=== PATIENT | female | born 1950 | race African-American/Black ===

== ENCOUNTER 2024-11-24 08:32 | Emergency (ER) | payer OTHER ==
--- OUTSIDE RECORDS SUMMARY | 2024-11-24 08:39 | XMS REPORT | Continuity of Care Document ---
Author Name Unknown Address [address] [facility] [place] [address] [facility] Address [address] [facility] [facility] [place] [address] Care Team Providers Care Sound Mixer Name Role Phone NEPTALI HERNANDEZ Primary Care Physician Unavailab BRADLEY Fox Attending Clinician Unavailable NEPTALI HERNANDEZ Attending Clinician Unavailable PAULA MAHONEY Attending Clinician Unavailab DANNY Canales Attending Clinician Unavailable DANNY NATION Attending Clinician Unavailable ANIBAL Attending Clinician Unavailable ROLY ONEILL Attending Clinician Unavailable NAN MATHEWS Attending Clinician Unavailabl e IMELDA SHETTYR Attending Clinician Unavailable Darren Attending Clinician Unavailable KANDACE MAHONEY Attending Clinician Unavailab BAILEY Alfonso Attending Clinician Unavail able BAILEY GRIMALDO Attending Clinician Unavailab ALEXANDRU Figueroa Attending Clinician Unavailable ALEXANDRU BOJORQUEZ Attending Clinician Unavailable UNASSIGNED, ED Attending Clinician Unavailable PAULA MAHONEY Admitting Clinician Unavailab DANNY Canales Admitting Clinician Unavailable ANIBAL Admitting Clinician Unavailable ROLY ONEILL Admitting Clinician Unavailable EVELIO SHETTY Admitting Clinician Unavailable Darren Admitting Clinician Unavailable KANDACE MAHONEY Admitting Clinician Unavailab BAILEY Alfonso Admitting Clinician Unavailab ALEXANDRU Figueroa Admitting Clinician Unavailable Payers Payer Name Policy Type Policy Number Effective Date Expirati on Date Source 2 M [id number] [facility] (MEDICARE REPLACEMENT O) [id number] [id number] 00:00:00 2 M [id number] 2 [id number] Problems Condition Name Condition Details Condition Category Status Onset Date Resolution Date Last Treatment Date Treating Clinician Comments Source Pain of upper extremity Problem Inactiv e TEL Coronary artery disease Problem Active TEL Congestive heart failure Problem Active TEL Acute on chronic congestive heart failure Problem Inactiv e TEL Chronic kidney disease Problem Active TEL Acute kidney injury Problem Inactiv e TEL Chronic obstructiv e pulmonary disease Problem Active TEL Cholelithi asis Problem Active TEL Dehydratio n Problem Active TEL Hypokalemi a Problem Active TEL Nausea and vomiting Problem Inactiv e TEL Pancreatit is Problem Inactiv e TEL Acute renal failure superimpos ed on chronic kidney disease Problem Active TEL 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 Inactiv e TEL Diabetes mellitus Problem Active TEL Fall Problem Inactiv e TEL Gastroesop hageal reflux disease Problem Active TEL Hyperlipid emia Problem Active TEL Hypertensi on Problem Active TEL History of cerebrovas cular accident Problem Active TEL History of pulmonary embolism Problem Active TEL Left upper quadrant abdominal pain Problem Inactiv e TEL Pain of lower extremity Problem Inactiv e TEL Morbid obesity Problem Active TEL Pulmonary embolism Problem Active TEL Pulmonary infarction Problem Active TEL Rib pain on right side Problem Inactiv e TEL Right upper quadrant abdominal pain Problem Inactiv e TEL Hemoptysis Problem Inactiv e TEL Chest pain Problem [facility] ([facility]) Allergies, Adverse Reactions, Alerts Allergy Name Allergy Type Status Severity Reaction(s) Onset Date Inactive Date Treating Clinician Comments Source L[place]R [place] Drug Allergy Active U swelling 3 01:44: 56 [facility] ([facility]) Lisinopr il Allergy to substanc e Active Unknown 2020-07 00:00: 00 TEL Shellfis h Allergy to substanc e Active Unknown 2020-07 00:00: 00 TEL Shellfis h Allergy to substanc e Active Unknown 2020-07 00:00: 00 [facility] [place] Drug Allergy Active U swelling 2020-07 0 14:41: 42 [facility] ([facility]) LISINOPR [place] Drug Allergy Active U swelling 2020-07 0 09:38: 44 [facility] ([facility]) No Known Allergie s NA Active 2020-07 0 09:26: 40 [facility] ([facility]) No Known Allergie s NA Active 2020-07 0 08:32: 02 [facility] ([facility]) No Known Allergie s NA Active 2020-07 08:28: 53 [facility] ([facility]) No Known Allergie s NA Active 2020-07 0 08:28: 32 [facility] ([facility]) No Known Allergie s NA Active 2020-07 0 13:38: 52 [facility] ([facility]) Lisinopr il Allergy to substanc e Active Unknown 814 00:00: 00 [facility] [place] Drug Allergy Active Adverse reaction to substance [facility] ([facility]) Social History Social Habit Start Date Stop Date Quantity Comments Source History of tobacco use TEL ASSERTION [facility] Future intention Reported [facility] Sex Assigned At 1950 00:00:00 1950 00:00:00 Female TEL Smoking Status Start Date Stop Date Source Unknown if ever smoked [facility] Ex-smoker (finding) 2023-11-17 20:00:00 2023-11-17 20: 00:00 TEL Never smoked tobacco (finding) TEL Medications Ordered Medication Name Filled Medication Name Start Date Stop Date Current Medication? Ordering Clinician Indication Dosage Frequency Signature (SIG) Comments Components Source Atorvastati n Calcium (Lipitor) 40 Mg TAB 11-17 03:37: 00 No 40mg Daily TEL Bumetanide (Bumex) 2 Mg TAB 11-17 03:37: 00 No 2mg Twice A Day TEL Hydralazine Hcl (Apresoline ) 25 Mg TAB 11-17 03:37: 00 No 25mg Three Times A Day TEL Insulin Aspart (Novolog 70/30) 100 Unit/1 Ml SUSP 11-17 03:37: 00 No 12 Three Times A Day TEL Metolazone (Zaroxolyn) 5 Mg TAB 11-17 03:37: 00 No 5mg Daily TEL Potassium Chloride (K-Dur) 20 Meq TABCR 02-24 18:45: 18 12-02 13:08 :00 No 20 Twice A Day TEL Chlorthalid one (Hygroton) 25 Mg TAB 02-24 18:45: 17 02-24 14:56 :00 No .5 Daily With Breakfast TEL Diltiazem Hcl (Cardizem Cd) 120 Mg CAPCR 02-24 18:45: 17 02-24 14:56 :00 No 120mg Three Times A Day TEL Furosemide (Lasix) 20 Mg TAB 02-24 18:45: 17 02-24 14:56 :00 No 20mg Daily as needed for Fluid Overload TEL Losartan Potassium (Cozaar) 100 Mg TAB 02-24 18:45: 17 02-24 14:56 :00 No 100mg Daily TEL Sacubitril/ Valsartan (Entresto 49 Mg-51 Mg Tablet) 1 Each TABLET 02-24 14:56: 00 No 1 Twice A Day TEL Nifedipine (Procardia Xl) 30 Mg TAB.ER.24 02-24 14:56: 00 11-17 03:37 :00 No 30mg Daily TEL Torsemide (Demadex) 10 Mg TAB 8-01 14:56: 00 11-17 03:37 :00 No 50mg Daily TEL Cholecalcif jason (Vitamin D (D3)) 2,000 Unit CAP 12-02 14:08: 18 12-02 13:08 :00 No 2000 Daily TEL Dulaglutide (Trulicity) 0.75 Mg/0.5 Ml PEN.INJCTR 12-02 14:08: 17 11-17 03:38 :00 No .75mg Once A Week TEL Aspirin (Ecotrin Ec) 81 Mg TABEC 12-02 14:08: 12-02 13:08 :00 No 81mg Daily TEL Potassium Chloride (K-Dur) 20 Meq TABCR 12-02 14:08: 12-02 13:08 :00 No 20 Twice A Day TEL Allopurinol (Zyloprim) 100 Mg TAB 12-02 14:08: 00 No 100mg Daily TEL Apixaban (Eliquis) 5 Mg TAB 12-02 14:08: 00 No 5mg Twice A Day TEL Epinephrine Hcl (Epipen Inj) 0.3 Mg/0.3 Ml MARY 12-02 14:08: 00 11-17 03:38 :00 No .3mg As Directed as needed for Allergies TEL Famotidine (Pepcid) 40 Mg TAB 12-02 14:08: 11-17 03:37 :00 No 40mg Daily TEL Insulin Glargine (Lantus Solostar Disp Pen) 100 Unit/1 Ml SUSP 12-02 14:08: 00 11-17 03:37 :00 No 15 Bedtime TEL Semaglutide (Ozempic) 2 Mg/0.75 Ml PEN.INJCTR 12-02 14:08: 00 11-17 03:38 :00 No .5mg Once A Week TEL Semaglutide Inj (Ozempic Inj) 0.25 Mg/0.2 Ml PEN.INJCTR 12-02 14:08: 00 11-17 03:38 :00 No .25mg Once A Week TEL Carvedilol (Coreg) 25 Mg TAB 08-02 13:43: 15 08-02 13:40 :00 No 25mg Bid With Meals TEL Clopidogrel Bisulfate (Plavix) 75 Mg TAB 08-02 13:43: 15 08-02 13:40 :00 No 75mg Daily TEL Apixaban (Eliquis) 5 Mg TAB 08-02 13:40: 00 12-02 13:08 :00 No 10mg Twice A Day TEL Apixaban (Eliquis) 5 Mg TAB 08-02 13:40: 00 12-02 13:08 :00 No 5mg Twice A Day TEL Carvedilol (Coreg) 25 Mg TAB 08-02 13:40: 00 12-02 13:08 :00 No 12.5mg Bid With Meals TEL Chlorthalid one (Hygroton) 50 Mg TABLET 08-02 13:40: 00 12-02 13:08 :00 No 25mg Daily TEL Diltiazem Hcl (Cardizem) 120 Mg TAB 08-02 13:40: 00 12-02 13:08 :00 No 60mg Three Times A Day TEL Insulin Glargine (Lantus Solostar Disp Pen) 100 Unit/1 Ml SUSP 08-02 13:40: 00 12-02 13:08 :00 No 25 Bedtime TEL Insulin Glargine (Lantus Solostar Disp Pen) 100 Unit/1 Ml SUSP 08-02 13:40: 00 12-02 13:08 :00 No 15 Once TEL Losartan Potassium (Cozaar) 50 Mg TAB 08-02 13:40: 00 12-02 13:08 :00 No 50mg Daily TEL Prednisone (Deltasone) 20 Mg TAB 08-02 13:40: 00 12-02 13:08 :00 No 40mg Daily TEL Amoxicillin (Amoxil) 500 Mg CAP 08-02 13:40: 00 09-02 00:07 :00 No 1000mg Twice A Day TEL Insulin Aspart (Novolog Flexpen) 100 Unit/1 Ml INSULN.PEN 2020-07 10:19: 00 11-17 03:38 :00 No 15 Before Meals TEL Atorvastati n Calcium (Lipitor) 80 Mg TAB 2020-07 10:18: 00 11-17 03:37 :00 No 80mg Bedtime TEL Aspirin Adult Low Strength Oral Tablet Delayed Release 81 MG Aspirin Adult Low Strength Oral Tablet Delayed Release 81 MG 2020-07 14:59: 24 Yes 1TAB medication :|dose:1.0 TAB|route: ORAL|frequ ency:DAILY [facility] Atorvastati n Calcium Oral Tablet 80 MG Atorvastati n Calcium Oral Tablet 80 MG 2020-07 14:59: 24 Yes 1TAB medication :Atorvasta tin Calcium Oral Tablet 80 MG|dose:1. 0 TAB|route: ORAL|frequ ency:DAILY [facility] ([facility]) Carvedilol Oral Tablet 25 MG Carvedilol Oral Tablet 25 MG 2020-07 14:59: 24 Yes 1TAB medication :Carvedilo l Oral Tablet 25 MG|dose:1. 0 TAB|route: ORAL|frequ ency:TWICE DAILY [facility] ([facility]) Chlorthalid one Oral Tablet 50 MG Chlorthalid one Oral Tablet 50 MG 2020-07 14:59: 24 Yes 1TAB medication :Chlorthal idone Oral Tablet 50 MG|dose:1. 0 TAB|route: ORAL|frequ ency:DAILY [facility] ([facility]) Lantus SoloStar Subcutaneou s Solution Pen-injecto r 100 UNIT/ML Lantus SoloStar Subcutaneou s Solution Pen-injecto r 100 UNIT/ML 2020-07 14:59: 24 Yes 20UN medication :Lantus SoloStar Subcutaneo us Solution Pen-inject or 100 UNIT/ML|do se:20.0 UN|route:S UBCUTANEOU S|frequenc y:DAILY [facility] Losartan Potassium Oral Tablet 50 MG Losartan Potassium Oral Tablet 50 MG 2020-07 14:59: 24 Yes 1TAB medication :Losartan Potassium Oral Tablet 50 MG|dose:1. 0 TAB|route: ORAL|frequ ency:DAILY [facility] ([facility]) NovoLIN 70/30 FlexPen Subcutaneou s Suspension Pen-injecto r (70-30) 100 UNIT/ML NovoLIN 70/30 FlexPen Subcutaneou s Suspension Pen-injecto r (70-30) 100 UNIT/ML 2020-07 14:59: 24 Yes 15UN medication :NovoLIN 70/30 FlexPen Subcutaneo us Suspension Pen-inject or (70-30) 100 UNIT/ML|do se:15.0 UN|route:S UBCUTANEOU S|frequenc y:THREE TIME DAILY [facility]) Plavix Oral Tablet 75 MG Plavix Oral Tablet 75 MG 2020-07 14:59: 24 Yes 1TAB medication :Plavix Oral Tablet 75 MG|dose:1. 0 TAB|route: ORAL|frequ ency:DAILY [facility]) Potassium Chloride Kimmie ER Oral Tablet Extended Release 20 MEQ Potassium Chloride Kimmie ER Oral Tablet Extended Release 20 MEQ 2020-07 14:59: 24 Yes 1TAB medication :Potassium Chloride Kimmie ER Oral Tablet Extended Release 20 MEQ|dose:1 .0 TAB|route: ORAL|frequ ency:DAILY [facility]) Trulicity Subcutaneou s Solution Pen-injecto r 0.75 MG/0.5ML Trulicity Subcutaneou s Solution Pen-injecto r 0.75 MG/0.5ML 2020-07 14:59: 24 Yes .75mg medication :Trulicity Subcutaneo us Solution Pen-inject or 0.75 MG/0.5ML|d ose:0.75 mg|route:S UBCUTANEOU S|frequenc y:EVERY WEEK [facility] ([facility]) Vitamin D3 Oral Capsule 50 MCG (1999) Vitamin D3 Oral Capsule 50 MCG (1999) 2020-07 14:59: 24 Yes 1CAP medication :Vitamin D3 Oral Capsule 50 MCG (1999)|dose:1 .0 CAP|route: ORAL|frequ ency:DAILY [facility] ([facility]) dilTIAZem HCl ER Oral Capsule Extended Release 12 Hour 120 MG dilTIAZem HCl ER Oral Capsule Extended Release 12 Hour 120 MG 2020-07 14:59: 24 Yes 1CAP medication :dilTIAZem HCl ER Oral Capsule Extended Release 12 Hour 120 MG|dose:1. 0 CAP|route: ORAL|frequ ency:DAILY [facility] ([facility]) PATIENT'S OWN MEDICATION MISC PATIENT'S OWN MEDICATION MISC 2020-07 14:59: 24 05-25 14:59 :24 No 1EA medication :PATIENT'S OWN MEDICATION MISC|dose: 1.0 EA|route:S UBCUTANEOU S|frequenc y:EVERY WEEK [facility] ([facility]) insulin, lispro 100 UNIT/ML SOLN insulin, lispro 100 UNIT/ML SOLN 2020-07 11:30: 00 05-25 14:59 :24 No 1UN medication :insulin, lispro 100 UNIT/ML SOLN|dose: 1.0 UN|route:S UBCUTANEOU S|frequenc y:BEFORE MEALS AND AT BEDTIME [facility] ([facility]) Chlorthalid one Oral Tablet 50 MG Chlorthalid one Oral Tablet 50 MG 2020-07 09:00: 00 05-25 09:00 :00 No 1TAB medication :Chlorthal idone Oral Tablet 50 MG|dose:1. 0 TAB|route: ORAL|frequ ency:DAILY [facility] ([facility]) Trulicity Subcutaneou s Solution Pen-injecto r 0.75 MG/0.5ML Trulicity Subcutaneou s Solution Pen-injecto r 0.75 MG/0.5ML 2020-07 09:00: 00 05-25 09:00 :00 No .75mg medication :Trulicity Subcutaneo us Solution Pen-inject or 0.75 MG/0.5ML|d ose:0.75 mg|route:S UBCUTANEOU S|frequenc y:EVERY WEEK [facility] ([facility]) potassium chloride ER 20 MEQ TAB TBCR potassium chloride ER 20 MEQ TAB TBCR 2020-07 09:00: 00 05-25 15:39 :00 No 20MEQ medication :potassium chloride ER 20 MEQ TAB TBCR|dose: 20.0 MEQ|route: ORAL|frequ ency:DAILY [facility] ([facility]) clopidogrel 75 MG TABS clopidogrel 75 MG TABS 2020-07 09:00: 00 05-25 15:39 :00 No 75mg medication :clopidogr el 75 MG TABS|dose: 75.0 mg|route:O RAL|freque ncy:DAILY [facility] ([facility]) losartan 50 MG TABS losartan 50 MG TABS 2020-07 09:00: 00 05-25 15:39 :00 No 50mg medication :losartan 50 MG TABS|dose: 50.0 mg|route:O RAL|freque ncy:DAILY [facility] ([facility]) Lantus SoloStar Subcutaneou s Solution Pen-injecto r 100 UNIT/ML Lantus SoloStar Subcutaneou s Solution Pen-injecto r 100 UNIT/ML 2020-07 09:00: 00 05-25 09:00 :00 No 20UN medication :Lantus SoloStar Subcutaneo us Solution Pen-inject or 100 UNIT/ML|do se:20.0 UN|route:S UBCUTANEOU S|frequenc y:DAILY [facility] ([facility]) aspirin 81 MG CHEW aspirin 81 MG CHEW 2020-07 09:00: 00 05-25 14:59 :24 No 81mg medication :aspirin 81 MG CHEW|dose: 81.0 mg|route:O RAL|freque ncy:DAILY [facility] ([facility]) chlorthalid one 25 MG TABS chlorthalid one 25 MG TABS 2020-07 09:00: 00 05-25 14:59 :24 No 50mg medication :chlorthal idone 25 MG TABS|dose: 50.0 mg|route:O RAL|freque ncy:DAILY [facility]) dilTIAZem CD 120 MG CP24 dilTIAZem CD 120 MG CP24 2020-07 09:00: 00 05-25 14:59 :24 No 120mg medication :dilTIAZem CD 120 MG CP24|dose: 120.0 mg|route:O RAL|freque ncy:DAILY [facility]) insulin, glargine 100 UNIT/ML SOLN insulin, glargine 100 UNIT/ML SOLN 2020-07 09:00: 00 05-25 14:59 :24 No 20UN medication :insulin, glargine 100 UNIT/ML SOLN|dose: 20.0 UN|route:S UBCUTANEOU S|frequenc y:DAILY [facility]) vitamin D 1,000 UNIT TABS vitamin D 1,000 UNIT TABS 2020-07 09:00: 00 05-25 14:59 :24 No 2000UN medication :vitamin D 1,000 UNIT TABS|dose: 2000.0 UN|route:O RAL|freque ncy:DAILY [facility]) glucose ORAL 40 % GEL glucose ORAL 40 % GEL 2020-07 07:54: 00 05-25 14:59 :24 No 1TBE medication :glucose ORAL 40 % GEL|dose:1 .0 TBE|route: ORAL|frequ ency: NEEDED [facility] ([facility]) glucose ORAL 40 % GEL glucose ORAL 40 % GEL 2020-07 07:54: 00 05-25 14:59 :24 No 2TBE medication :glucose ORAL 40 % GEL|dose:2 .0 TBE|route: ORAL|frequ ency: NEEDED [facility]) glucagon INJ 1 MG SOLR glucagon INJ 1 MG SOLR 2020-07 07:54: 00 05-25 14:59 :24 No 1mg medication :glucagon INJ 1 MG SOLR|dose: 1.0 mg|route:I NTRAMUSCUL AR|frequen cy: [facility]ED [facility] D50W INJ SYRINGE SOLN D50W INJ SYRINGE SOLN 2020-07 07:54: 00 05-25 14:59 :24 No 50mL medication :D50W INJ SYRINGE SOLN|dose: 50.0 mL|route:I NTRAVENOUS |frequency : NEEDED [facility] ([facility]) D50W INJ SYRINGE SOLN D50W INJ SYRINGE SOLN 2020-07 07:54: 00 05-25 14:59 :24 No 25mL medication :D50W INJ SYRINGE SOLN|dose: 25.0 mL|route:I NTRAVENOUS |frequency : NEEDED [facility] ([facility] D5W SOLN D5W SOLN 2020-07 07:54: 00 05-25 14:59 :24 No 1000mL medication :D5W SOLN|dose: 1000.0 mL|route:I NTRAVENOUS |frequency : NEEDED [facility] NS SOLN NS SOLN 2020-07 22:00: 00 05-25 14:59 :24 No 1000mL medication :NS SOLN|dose: 1000.0 mL|route:I NTRAVENOUS |frequency :CONT [facility] ([facility] MISSING DOSE REQUEST MISC MISSING DOSE REQUEST MISC 2020-07 21:16: 00 05-24 21:19 :49 No 1EA medication :MISSING DOSE REQUEST MISC|dose: 1.0 EA|route:N OT APPLICABLE |frequency :ONE TIME [facility] ([facility]) carvedilol 25 MG TABS carvedilol 25 MG TABS 2020-07 21:00: 00 05-25 15:39 :00 No 25mg medication :carvedilo l 25 MG TABS|dose: 25.0 mg|route:O RAL|freque ncy:TWICE DAILY [facility] ([facility]) atorvaSTATi n 80 MG TABS atorvaSTATi n 80 MG TABS 2020-07 21:00: 00 05-25 14:59 :24 No 80mg medication :atorvaSTA Tin 80 MG TABS|dose: 80.0 mg|route:O RAL|freque ncy:AT BEDTIME [facility] insulin, isophane-re gular 70-30 % SUSP insulin, isophane-re gular 70-30 % SUSP 2020-07 21:00: 00 05-25 14:59 :24 No 15UN medication :insulin, isophane-r egular 70-30 % SUSP|dose: 15.0 UN|route:S UBCUTANEOU S|frequenc y:THREE TIME DAILY [facility] ([facility]) NovoLIN 70/30 FlexPen Subcutaneou s Suspension Pen-injecto r (70-30) 100 UNIT/ML NovoLIN 70/30 FlexPen Subcutaneou s Suspension Pen-injecto r (70-30) 100 UNIT/ML 2020-07 21:00: 00 05-24 21:00 :00 No 15UN medication :NovoLIN 70/30 FlexPen Subcutaneo us Suspension Pen-inject or (70-30) 100 UNIT/ML|do se:15.0 UN|route:S UBCUTANEOU S|frequenc y:THREE TIME DAILY [facility] ([facility]) CLARIFICATI ON: MED QUESTION MIS CLARIFICATI ON: MED QUESTION MISC 2020-07 17:00: 00 05-24 17:00 :00 No 1EA medication :CLARIFICA TION: MED QUESTION MISC|dose: 1.0 EA|route:N OT APPLICABLE |frequency :EVERY 4 HOURS [facility] ([facility]) NS SOLN NS SOLN 2020-07 16:03: 00 05-24 22:02 :00 No 1000mL medication :NS SOLN|dose: 1000.0 mL|route:I NTRAVENOUS |frequency :CONT [facility] ([facility]) CLARIFICATI ON: MED QUESTION MISC CLARIFICATI ON: MED QUESTION MISC 2020-07 14:42: 00 05-24 15:45 :04 No 1EA medication :CLARIFICA TION: MED QUESTION MISC|dose: 1.0 EA|route:N OT APPLICABLE |frequency :EVERY 4 HOURS [facility] aspirin 325 MG TABS aspirin 325 MG TABS 2020-07 13:41: 00 05-24 13:41 :00 No 325mg medication :aspirin 325 MG TABS|dose: 325.0 mg|route:O RAL|freque ncy:ONE TIME [facility] ([facility]) clopidogrel 75 MG TABS clopidogrel 75 MG TABS 2020-07 13:41: 00 05-24 13:41 :00 No 75mg medication :clopidogr el 75 MG TABS|dose: 75.0 mg|route:O RAL|freque ncy:[facility] iopamidol-3 00 INJ 61 % SOLN iopamidol-3 00 INJ 61 % SOLN 2020-07 12:21: 00 05-24 12:21 :00 No 100mL medication :iopamidol -300 INJ 61 % SOLN|dose: 100.0 mL|route:I NTRAVENOUS |frequency :ONE TIME [facility] ([facility]) heparin INJ 1,000 UNIT/ML SOLN heparin INJ 1,000 UNIT/ML SOLN 2020-07 11:51: 00 05-24 11:51 :00 No 1000UN medication :heparin INJ 1,000 UNIT/ML SOLN|dose: 1000.0 UN|route:| frequency: ONE TIME [facility] ([facility]) heparin-NS 1000 UNIT/500 ML SOLN heparin-NS 1000 UNIT/500 ML SOLN 2020-07 11:34: 00 05-24 11:34 :00 No 1000UN medication :heparin-N S 1000 UNIT/500 ML SOLN|dose: 1000.0 UN|route:I NTRAVENOUS |frequency :ONE TIME [facility] ([facility]) iopamidol-3 00 INJ 61 % SOLN iopamidol-3 00 INJ 61 % SOLN 2020-07 11:34: 00 05-24 11:34 :00 No 100mL medication :iopamidol -300 INJ 61 % SOLN|dose: 100.0 mL|route:I NTRAVENOUS |frequency :ONE TIME [facility] ([facility]) verapamil INJ 5 MG/2 ML SOLN verapamil INJ 5 MG/2 ML SOLN 2020-07 11:28: 00 05-24 11:28 :00 No 5mg medication :verapamil INJ 5 MG/2 ML SOLN|dose: 5.0 mg|route:I NTRAVENOUS |frequency :ONE TIME [facility] ([facility]) fentaNYL INJ 100 MCG/2 ML SOLN fentaNYL INJ 100 MCG/2 ML SOLN 2020-07 11:28: 00 05-24 11:28 :00 No 100ug medication :fentaNYL INJ 100 MCG/2 ML SOLN|dose: 100.0 ug|route:I NTRAVENOUS |frequency :ONE TIME [facility] ([facility]) heparin INJ 1,000 UNIT/ML SOLN heparin INJ 1,000 UNIT/ML SOLN 2020-07 11:28: 00 05-24 11:28 :00 No 1000UN medication :heparin INJ 1,000 UNIT/ML SOLN|dose: 1000.0 UN|route:| frequency: ONE TIME [facility] ([facility]) 1/2 NS SOLN 1/2 NS SOLN 2020-07 11:28: 00 05-24 11:28 :00 No 500mL medication :1/2 NS SOLN|dose: 500.0 mL|route:I NTRAVENOUS |frequency :ONE TIME [facility] ([facility]) midazolam INJ 5 MG/1 ML SOLN midazolam INJ 5 MG/1 ML SOLN 2020-07 11:28: 00 05-24 11:28 :00 No 1mg medication :midazolam INJ 5 MG/1 ML SOLN|dose: 1.0 mg|route:I NTRAVENOUS |frequency :ONE TIME [facility] ([facility]) phenylephri ne INJ 10 MG/1 ML SOLN phenylephri ne INJ 10 MG/1 ML SOLN 2020-07 11:28: 00 05-24 11:28 :00 No 10mg medication :phenyleph rine INJ 10 MG/1 ML SOLN|dose: 10.0 mg|route:I NTRAVENOUS |frequency :ONE TIME [facility] ([facility]) atropine INJ syringe 1 MG/10 ML SOSY atropine INJ syringe 1 MG/10 ML SOSY 2020-07 11:28: 00 05-24 11:28 :00 No .01mg medication :atropine INJ syringe 1 MG/10 ML SOSY|dose: 0.01 mg|route:I NTRAVENOUS |frequency :ONE TIME [facility] ([facility]) NS SOLN NS SOLN 2020-07 11:28: 00 05-24 11:28 :00 No 100mL medication :NS SOLN|dose: 100.0 mL|route:I NTRAVENOUS |frequency :ONE TIME [facility] ([facility]) nitroglycer in-D5W 25mg/ 250 ML SOLN nitroglycer in-D5W 25mg/ 250 ML SOLN 2020-07 11:28: 00 05-24 11:28 :00 No 250mL medication :nitroglyc darien-D5W 25mg/ 250 ML SOLN|dose: 250.0 mL|route:I NTRAVENOUS |frequency :ONE TIME [facility] ([facility]) lidocaine INJ MULTI DOSE VIAL 2 % 20ML SOLN lidocaine INJ MULTI DOSE VIAL 2 % 20ML SOLN 2020-07 11:16: 00 05-24 11:16 :00 No 20mL medication :lidocaine INJ MULTI DOSE VIAL 2 % 20ML SOLN|dose: 20.0 mL|route:| frequency: ONE TIME [facility] ([facility]) heparin-NS 1000 UNIT/500 ML SOLN heparin-NS 1000 UNIT/500 ML SOLN 2020-07 11:16: 05-24 11:16 :00 No 1000UN medication :heparin-N S 1000 UNIT/500 ML SOLN|dose: 1000.0 UN|route:I NTRAVENOUS |frequency :ONE TIME [facility]) iopamidol-3 00 INJ 61 % SOLN iopamidol-3 00 INJ 61 % SOLN 2020-07 11:16: 00 05-24 11:16 :00 No 100mL medication :iopamidol -300 INJ 61 % SOLN|dose: 100.0 mL|route:I NTRAVENOUS |frequency :ONE TIME [facility]) iopamidol-3 00 INJ 61 % SOLN iopamidol-3 00 INJ 61 % SOLN 2020-07 11:16: 00 05-24 11:16 :00 No 50mL medication :iopamidol -300 INJ 61 % SOLN|dose: 50.0 mL|route:I NTRAVENOUS |frequency :ONE TIME [facility]) Aspirin Adult Low Strength Oral Tablet Delayed Release 81 MG Aspirin Adult Low Strength Oral Tablet Delayed Release 81 MG 2020-07 07:00: 00 Yes 1TAB medication :Aspirin Adult Low Strength Oral Tablet Delayed Release 81 MG|dose:1. 0 TAB|route: ORAL|frequ ency:DAILY [facility]) Carvedilol Oral Tablet 25 MG Carvedilol Oral Tablet 25 MG 2020-07 07:00: 00 Yes 1TAB medication :Carvedilo l Oral Tablet 25 MG|dose:1. 0 TAB|route: ORAL|frequ ency:BID [facility]) Chlorthalid one Oral Tablet 50 MG Chlorthalid one Oral Tablet 50 MG 2020-07 07:00: 00 Yes 1TAB medication :Chlorthal idone Oral Tablet 50 MG|dose:1. 0 TAB|route: ORAL|frequ ency:DAILY [facility]) dilTIAZem HCl ER Oral Capsule Extended Release 12 Hour 120 MG dilTIAZem HCl ER Oral Capsule Extended Release 12 Hour 120 MG 2020-07 07:00: 00 Yes 1CAP medication :dilTIAZem HCl ER Oral Capsule Extended Release 12 Hour 120 MG|dose:1. 0 CAP|route: ORAL|frequ ency:DAILY [facility]) Losartan Potassium Oral Tablet 50 MG Losartan Potassium Oral Tablet 50 MG 2020-07 07:00: 00 Yes 1TAB medication :Losartan Potassium Oral Tablet 50 MG|dose:1. 0 TAB|route: ORAL|frequ ency:DAILY [facility]) Plavix Oral Tablet 75 MG Plavix Oral Tablet 75 MG 2020-07 07:00: 00 Yes 1TAB medication :Plavix Oral Tablet 75 MG|dose:1. 0 TAB|route: ORAL|frequ ency:DAILY [facility]) Potassium Chloride Kimmie ER Oral Tablet Extended Release 20 MEQ Potassium Chloride Kimmie ER Oral Tablet Extended Release 20 MEQ 2020-07 07:00: 00 Yes 1TAB medication :Potassium Chloride Kimmie ER Oral Tablet Extended Release 20 MEQ|dose:1 .0 TAB|route: ORAL|frequ ency:DAILY [facility]) Vitamin D3 Oral Capsule 50 MCG (1999) Vitamin D3 Oral Capsule 50 MCG (1999) 2020-07 07:00: 00 Yes 1CAP medication :Vitamin D3 Oral Capsule 50 MCG (1999 UT)|dose:1 .0 CAP|route: ORAL|frequ ency:DAILY [facility]) NovoLIN 70/30 FlexPen Subcutaneou s Suspension Pen-injecto r (70-30) 100 UNIT/ML NovoLIN 70/30 FlexPen Subcutaneou s Suspension Pen-injecto r (70-30) 100 UNIT/ML 2020-07 09:32: 00 Yes 15UN medication :NovoLIN 70/30 FlexPen Subcutaneo us Suspension Pen-inject or (70-30) 100 UNIT/ML|do se:15.0 UN|route:S Q|frequenc y:TID [facility] ([facility]) Lantus SoloStar Subcutaneou s Solution Pen-injecto r 100 UNIT/ML Lantus SoloStar Subcutaneou s Solution Pen-injecto r 100 UNIT/ML 2020-07 09:31: 00 Yes 20UN medication :Lantus SoloStar Subcutaneo us Solution Pen-inject or 100 UNIT/ML|do se:20.0 UN|route:S Q|frequenc y:[facility] Atorvastati n Calcium Oral Tablet 80 MG Atorvastati n Calcium Oral Tablet 80 MG 2020-07 09:27: 00 Yes 1TAB medication :Atorvasta tin Calcium Oral Tablet 80 MG|dose:1. 0 TAB|route: ORAL|frequ ency:DAILY [facility]) Trulicity Subcutaneou s Solution Pen-injecto r 0.75 MG/0.5ML Trulicity Subcutaneou s Solution Pen-injecto r 0.75 MG/0.5ML 2020-07 09:34: 00 Yes .75mg medication :Trulicity Subcutaneo us Solution Pen-inject or 0.75 MG/0.5ML|d ose:0.75 mg|route:S Q|frequenc y:QWK [facility]) Al Hydrox/Mg Hydrox/Juwan thicone (Mylanta Liq) 355 Ml ORAL.SUSP 03-09 05:55: 00 No 5mL Tid Before Meals & Hs [facility] Famotidine (Pepcid) 40 Mg TAB 03-09 05:55: 00 No 40mg Daily [facility] Lidocaine (Lidoderm 5% Patch) 1 Each ADH..PATCH 03-09 05:55: 00 No 1 Daily as needed for Pain [facility] Al Hydrox/Mg Hydrox/Juwan thicone (Mylanta Liq) 355 Ml ORAL.SUSP 03-09 05:55: 00 06-03 00:00 :00 No 5mL Tid Before Meals & Hs [facility] Famotidine (Pepcid) 40 Mg TAB 03-09 05:55: 00 06-03 00:00 :00 No 40mg Daily [facility] Lidocaine (Lidoderm 5% Patch) 1 Each ADH..PATCH 2021-0 8-14 05:55: 00 06-03 00:00 :00 No 1 Daily as needed for Pain [facility] Carvedilol (Coreg) 25 Mg TAB 08-02 00:00 :00 No 25mg Bid With Meals [facility] Chlorthalid one (Hygroton) 50 Mg TABLET 08-02 00:00 :00 No 50mg Daily [facility] Clopidogrel Bisulfate (Plavix) 75 Mg TAB 08-02 00:00 :00 No 75mg Daily [facility] Diltiazem Hcl (Cardizem) 120 Mg TAB 08-02 00:00 :00 No 120mg Three Times A Day [facility] Diphenhydra mine Hcl (Benadryl) 25 Mg CAP 08-02 00:00 :00 No 50mg As Directed [facility] Insulin Glargine (Lantus Solostar Disp Pen) 100 Unit/1 Ml SUSP 08-02 00:00 :00 No 20 Bedtime [facility] Insulin Glargine (Lantus Solostar Disp Pen) 100 Unit/1 Ml SUSP 08-02 00:00 :00 No 10 Once [facility] Losartan Potassium (Cozaar) 50 Mg TAB 08-02 00:00 :00 No 75mg Daily [facility] Prednisone (Deltasone) 20 Mg TAB 08-02 00:00 :00 No 60mg As Directed [facility] Vital Signs Vital Name Observation Time Observation Value Comments S ource Body Temperature 2023-11-20 07:16:00 97.9 [degF] TEL Heart Rate 2023-11-20 07:16:00 101 /min TEL Respiratory rate 2023-11-20 07:16:00 18 /min TEL BP Systolic 2023-11-20 07:16:00 120 mm[Hg] TEL BP Diastolic 2023-11-20 07:16:00 76 mm[Hg] TEL Height 2023-11-17 20:00:00 165.459780 cm TE L Weight 2023-11-17 20:00:00 134.916673 kg TE L BMI (Body Mass Index) 2023-11-17 20:00:00 49.3 kg/m2 TEL Body Temperature 2023-09-29 19:59:00 97.8 [degF] TEL Heart Rate 2023-09-29 19:59:00 80 /min TEL Respiratory rate 2023-09-29 19:59:00 14 /min TEL BP Systolic 2023-09-29 19:59:00 122 mm[Hg] TEL BP Diastolic 2023-09-29 19:59:00 87 mm[Hg] TEL BMI (Body Mass Index) 2023-09-29 13:17:00 53.2 kg/m2 TEL Height 2023-09-29 13:05:00 162.542704 cm TE L Weight 2023-09-29 13:05:00 140.581892 kg TE L Body temperature 2023-09-26 04:32:00 98 [degF] [facility]) Diastolic blood pressure 2023-09-26 04:32:00 70 mm[Hg] [facility] Heart rate 2023-09-26 04:32:00 78 /min [facility]) Oxygen saturation in Arterial blood by Pulse oximetry 2023-09-26 04:32:00 98 /min [facility] Respiratory rate 2023-09-26 04:32:00 15 /min [facility]) Systolic blood pressure 2023-09-26 04:32:00 131 mm[Hg] [facility] Systolic blood pressure 2021-05-25 11:39:00 127 mm[Hg] [facility] Oral temperature 2021-05-25 11:39:00 97.6 [degF] [facility]) Heart rate 2021-05-25 11:39:00 78 /min [facility]) Respiratory rate 2021-05-25 11:39:00 18 /min [facility]) Diastolic blood pressure 2021-05-25 11:39:00 66 mm[Hg] [facility] Body mass index (BMI) [Ratio] 2021-05-24 13:01:45 59.237 kg/m2 [facility] Body height 2021-05-24 13:01:45 160.02 cm [facility]) Body weight Measured 2021-05-24 13:01:45 151.7 kg [facility]) Body mass index (BMI) [Ratio] 2021-05-24 09:26:39 59.243 kg/m2 [facility]) Body height 2021-05-24 09:26:39 160.02 cm [facility]) Body weight Measured 2021-05-24 09:26:39 151.7 kg [facility]) Systolic blood pressure 2021-05-25 11:39:00 127 mm[Hg] [facility] Oral temperature 2021-05-25 11:39:00 97.6 [degF] [facility] Heart rate 2021-05-25 11:39:00 78 /min [facility]) Respiratory rate 2021-05-25 11:39:00 18 /min [facility]) Diastolic blood pressure 2021-05-25 11:39:00 66 mm[Hg] [facility] Body mass index (BMI) [Ratio] 2021-05-24 13:01:45 59.237 kg/m2 [facility] Body height 2021-05-24 13:01:45 160.02 cm [facility]) Body weight Measured 2021-05-24 13:01:45 151.7 kg [facility]) Body mass index (BMI) [Ratio] 2021-05-24 09:26:39 59.243 kg/m2 [facility]) Body height 2021-05-24 09:26:39 160.02 cm [facility]) Body weight Measured 2021-05-24 09:26:39 151.7 kg [facility]) BP Diastolic 2021-08-02 10:55:00 75 mm[Hg] [facility] BP Systolic 2021-08-02 10:55:00 148 mm[Hg] [facility] Heart Rate 2021-08-02 10:55:00 89 /min [facility] Respiratory rate 2021-08-02 10:55:00 20 /min [facility] Body Temperature 2021-08-02 10:55:00 97.7 [degF] [facility] BP Diastolic 2021-08-02 07:44:00 68 mm[Hg] [facility] BP Systolic 2021-08-02 07:44:00 145 mm[Hg] [facility] Heart Rate 2021-08-02 07:44:00 91 /min [facility] Respiratory rate 2021-08-02 07:44:00 20 /min [facility] Body Temperature 2021-08-02 07:44:00 97.7 [degF] [facility] BP Diastolic 2021-08-02 04:00:00 74 mm[Hg] [facility] BP Systolic 2021-08-02 04:00:00 146 mm[Hg[facility] 2021-08-02 04:00:00 91 /min [facility] Respiratory rate 2021-08-02 04:00:00 18 /min [facility] Body Temperature 2021-08-02 04:00:00 97.7 [degF] [facility] Heart Rate 2021-08-02 00:00:00 83 /min [facility] Heart Rate 2021-08-01 23:21:00 93 /min [facility] BP Diastolic 2021-08-01 20:26:00 72 mm[Hg] [facility] BP Systolic 2021-08-01 20:26:00 154 mm[Hg] [facility] Heart Rate 2021-08-01 20:26:00 88 /min [facility] Respiratory rate 2021-08-01 20:26:00 17 /min [facility] Body Temperature 2021-08-01 20:26:00 98.6 [degF] [facility] BP Diastolic 2021-08-01 20:00:00 86 mm[Hg] [facility] BP Systolic 2021-08-01 20:00:00 142 mm[Hg] [facility] Heart Rate 2021-08-01 20:00:00 95 /min [facility] Respiratory rate 2021-08-01 20:00:00 20 /min [facility] Body Temperature 2021-08-01 20:00:00 97.7 [degF] [facility] BP Diastolic 2021-08-01 19:47:00 72 mm[Hg] [facility] BP Systolic 2021-08-01 19:47:00 154 mm[Hg] [facility] Heart Rate 2021-08-01 19:47:00 88 /min [facility] Respiratory rate 2021-08-01 19:47:00 17 /min [facility] BP Diastolic 2021-08-01 15:11:00 74 mm[Hg] [facility] BP Systolic 2021-08-01 15:11:00 138 mm[Hg] [facility] Heart [facility] 2021-08-01 15:11:00 75 /min [facility] Respiratory rate 2021-08-01 15:11:00 18 /min [facility] Heart Rate 2021-08-01 14:11:00 68 /min [facility] Heart Rate 2021-08-01 13:11:00 66 /min [facility] Respiratory rate 2021-08-01 13:11:00 16 /min [facility] BP Diastolic 2021-08-01 13:02:00 56 mm[Hg] [facility] BP Systolic 2021-08-01 13:02:00 129 mm[Hg] [facility] Heart Rate 2021-08-01 13:02:00 66 /min [facility] BP Diastolic 2021-08-01 12:11:00 69 mm[Hg] [facility] BP Systolic 2021-08-01 12:11:00 138 mm[Hg] [facility] Heart [facility] 2021-08-01 12:11:00 66 /min [facility] Respiratory rate 2021-08-01 12:11:00 27 /min [facility] Heart Rate 2021-08-01 11:20:00 88 /min [facility] Respiratory rate 2021-08-01 11:20:00 18 /min [facility] BP Diastolic 2021-08-01 10:05:00 56 mm[Hg] [facility] BP Systolic 2021-08-01 10:05:00 143 mm[Hg] [facility] Heart Rate 2021-08-01 10:05:00 84 /min [facility] Respiratory rate 2021-08-01 10:05:00 18 /min [facility] Body Temperature 2021-08-01 10:05:00 98.6 [degF] [facility] BP Diastolic 2021-08-01 10:00:00 59 mm[Hg] [facility] BP Systolic 2021-08-01 10:00:00 115 mm[Hg] [facility] Heart [facility] 2021-08-01 10:00:00 75 /min [facility] Respiratory rate 2021-08-01 10:00:00 18 /min [facility] BP Diastolic 2021-08-01 09:58:00 52 mm[Hg] [facility] BP Systolic 2021-08-01 09:58:00 111 mm[Hg] [facility] Heart Rate 2021-08-01 09:58:00 77 /min [facility] Respiratory rate 2021-08-01 09:58:00 17 /min [facility] BP Diastolic 2021-08-01 09:46:00 56 mm[Hg] [facility] BP Systolic 2021-08-01 09:46:00 143 mm[Hg] [facility] Heart Rate 2021-08-01 09:46:00 84 /min [facility] Respiratory rate 2021-08-01 09:46:00 18 /min [facility] Body Temperature 2021-08-01 09:46:00 98.6 [degF] [facility] Heart Rate 2021-03-09 05:43:00 79 /min [facility] Respiratory rate 2021-03-09 05:43:00 21 /min [facility] BP Diastolic 2021-03-09 05:00:00 99 mm[Hg] [facility] BP Systolic 2021-03-09 05:00:00 179 mm[Hg] [facility] Heart Rate 2021-03-09 05:00:00 80 /min [facility] Respiratory rate 2021-03-09 05:00:00 15 /min [facility] BP Diastolic 2021-03-09 04:30:00 93 mm[Hg] [facility] BP Systolic 2021-03-09 04:30:00 164 mm[Hg] [facility] [employer] Heart Rate 2021-03-09 04:30:00 76 /min [facility] [employer] BP Diastolic 2021-03-09 04:07:00 86 mm[Hg] [facility] Systolic 2021-03-09 04:07:00 157 mm[Hg] [facility] [employer] Heart Rate 2021-03-09 04:07:00 78 /min [facility] [employer] Body Temperature 2021-03-09 04:07:00 97.9 [degF] [facility] [employer] Heart Rate 2021-03-09 03:54:00 80 /min [facility] [employer] Procedures Procedure Date / Time Performed Performing Clinicia n Source ECG (electrocardiogram) 2023-11-17 11:32:00 TEL X-ray of chest, single view 2023-11-17 11:32:00 TEL US Gallbladder 2023-11-17 00:00:00 TEL Venipuncture requiring physician or skilled healthcare provider in patient 3 years of age or older 2023-11-17 00:00:00 TEL Establishment of vascular access with ultrasound guidance 2023-11-17 00:00:00 TEL Venipuncture requiring physician or skilled healthcare provider in patient 3 years of age or older 2023-09-29 00:00:00 TEL Establishment of vascular access with ultrasound guidance 2023-09-29 00:00:00 TEL Computed tomography of abdomen and pelvis without contrast 2023-09-14 10:00:[address] ABD & PELVIS W/O CONTRAST 2023-09-14 00:00:00 TEL ECG (electrocardiogram) 2021-08-01 00:00:00 [facility] [employer] X-ray of chest, single view 2021-08-01 00:00:00 [facility] Venipuncture requiring physician or skilled healthcare provider in patient 3 years of age or older 2021-08-01 00:00:00 [facility] Establishment of vascular access with ultrasound guidance 2021-08-01 00:00:00 [facility] [employer] Lung perfusion scan 2021-08-01 00:00:00 [facility] [employer] Computed tomography angiography of pulmonary artery 2021-08-01 00:00:00 [facility] Dup-scan xtr veins complete bilateral study 2021-08-01 00:00:00 [facility] X-ray of chest, single view 2021-03-09 00:00:00 [facility] ECG (electrocardiogram) 2021-03-09 00:00:00 [facility] Encounters Start Date/Time End Date/Time Encounter Type Admission Type Attending [facility] Facility Care Department Encounter ID Source 2024-04-14 09:22:00 2024-04-14 09:22:00 Outpatient BRADLEY JIANG [id number] [facility] 2024-01-12 08:56:00 2024-01-12 08:56:00 Outpatient NEPTALI MISHRA [id number] [facility] 2023-11-17 16:21:00 2023-11-20 12:19:00 Discharged Inpatient [facility] LIVE HCIS [id number] TEL 2023-11-17 16:21:00 2023-11-20 12:19:00 Inpatient ER PAULA MAHONEY [id number] [facility] 2023-09-29 13:02:00 2023-09-29 20:00:00 Departed Emergency Room [facility] LIVE HCIS [id number] TEL 2023-09-29 13:02:00 2023-09-29 20:00:00 Emergency ER DANNY NATION [id number] [facility] 2023-09-26 01:07:00 2023-09-26 04:34:00 Outpatient Encounter 1 [facility]ANNY NATION [facility] [id number] [facility]) 2023-09-14 08:41:2023-09-14 08:41:00 Registered [facility] [id number] [facility] [id number] TEL 2023-09-14 08:41:00 2023-09-14 08:41:00 Outpatient [id number] [facility] 2023-03-02 00:00:00 2023-03-02 00:00:00 Outpatient DON[facility]_ [facility] [id number] [facility] 2023-03-02 00:00:00 2023-03-02 00:00:00 Outpatient DONITA GANDHI_ [facility] [id number] [facility] 2023-02-21 19:08:00 2023-02-24 18:44:00 inpatient encounter [id number] 2023-02-21 19:08:00 2023-02-24 18:44:00 Inpatient ER ROLY ONEILL [id number] [facility] 2023-02-18 07:57:00 2023-02-18 07:57:00 Out[facility]ISH[id number] [facility] 2023-01-09 08:29:00 2023-01-09 08:29:00 [id number] [facility] 2022-12-02 09:23:00 2022-12-02 09:23:00 [id number] [facility] 2022-12-01 00:00:00 2022-12-01 00:00:00 Outpatient DONITA GANDHI_ [facility] [id number] [facility] 2022-12-01 00:00:00 2022-12-01 00:00:00 Outpatient DONITA GANDHI_ [facility] [id number] [facility] 2022-11-18 17:14:00 2022-11-18 19:13:00 Emergency ER NAN MATHEWS [facility] [id number] [facility] 2022-08-18 10:18:00 2022-08-20 09:35:00 Outpatient Encounter [address] [facility] [id number] [facility] 2022-06-16 00:00:00 2022-06-16 00:00:00 Outpatient Czerwinski_ K DMG DMG [id number] [facility] 2022-06-16 00:00:00 2022-06-16 00:00:00 Outpatient Czerwinski_ K DMG DMG [id number] [facility] 2022-06-16 00:00:00 2022-06-16 00:00:00 Outpatient Czerwinski_ K DMG DMG [id number] [facility] 2022-06-13 00:00:00 2022-06-13 00:00:00 Outpatient Czerwinski_ K DMG DMG [id number] [facility] 2022-03-11 16:02:00 2022-03-19 11:55:00 Outpatient Encounter 3 LEANN, [facility] [id number] [facility]) 2022-02-28 00:00:00 2022-02-28 00:00:00 Outpatient DMG DMG [id number] [facility] 2022-02-20 00:00:00 2022-02-20 00:00:00 Outpatient DMG DMG [id number] [facility] 2022-02-07 09:40:00 2022-02-07 09:40:00 Outpatient NEPTALI MISHRA [id number] [facility] 2022-01-13 09:22:00 2022-01-23 09:21:00 Outpatient Encounter [address] [facility] [id number] [facility] 2022-01-08 09:46:00 2022-01-08 09:46:00 Outpatient EL NEPTALI HERNANDEZ KIERRA [id number] [facility] 2021-10-30 08:44:00 2021-11-21 10:07:00 Outpatient Encounter [address] [facility] [id number] [facility] 2021-10-16 14:17:00 2021-10-24 13:07:00 Outpatient Encounter [address] [facility] [id number] [facility] ([facility]) 2021-08-01 16:49:00 2021-08-02 17:59:00 Discharged Inpatient (obs) ER KANDACE MAHONEY [facility] [id number] [facility] 2021-07-02 13:20:00 2021-07-02 13:20:00 Outpatient EL ELIESERJOSH BAILEY JARAD ABRAHAM [id number] [facility] 2021-06-27 18:12:00 2021-06-27 18:12:00 Outpatient Encounter [facility] [id number] 2021-06-27 12:12:00 2021-06-27 12:12:00 Outpatient Encounter 3 BAILEY GRIMALDO [facility] [id number] [facility] ([facility]) 2021-06-25 15:38:00 2021-06-25 15:38:00 Outpatient GÓMEZ ELIESERJOSH BAILEY JARAD ABRAHAM [id number] [facility] 2021-06-07 05:52:00 2021-06-07 18:30:00 Outpatient GÓMEZ RENOALEXANDRU HUTCHINS JARAD ABRAHAM [id number] [facility] 2021-05-24 13:28:00 2021-05-25 20:39:00 Outpatient Encounter [facility] [id number] 2021-05-24 08:28:00 2021-05-25 15:39:00 Outpatient Encounter Bernardo ALEXANDRU BOJORQUEZ [facility] [id number] [facility]) 2021-05-21 09:53:00 2021-05-21 09:53:00 Outpatient GÓMEZ ALEXANDRU BOJORQUEZ [id number] [facility] 2021-05-06 10:20:00 2021-05-06 10:20:00 Outpatient GÓMEZ RENOALEXANDRU [id number] [facility] 2021-03-09 03:27:00 2021-03-09 03:27:00 Departed Emergency Room ER UNASSIGNED, ED JARAD ABRAHAM [id number] [facility] Results Test Description Test Time Test Comments Results Result Co mments Source [id number] 11:40:00* Test Item Value Reference Range Interpretation Comme nts Sodium Level (test code = 2951-2) 138 136-145 TELSerum or plasma potassium measurement (moles/volume)2023-11-19 11:40:00* Test Item Value Reference Range Interpretation Comme nts Potassium Level (test code = 2823-3) 3.3 3.5-5.1 TELSerum or plasma chloride measurement (moles/volume)2023-11-19 11:40:00* Test Item Value Reference Range Interpretation Comme nts Chloride Level (test code = 2075-0) 104 98-107 TELSerum or plasma total carbon dioxide measurement (moles/volume)2023-11-19 11:40:00* Test Item Value Reference Range Interpretation Comme nts Carbon Dioxide Level (test c ode = 2027-) 25 23-31 TELSerum or plasma anion gap determination (moles/volume)2023-11-19 11:40:00* Test Item Value Reference Range Interpretation Comme nts Anion Gap (test code = 31439-5) 12 8-18 TELSerum or plasma urea nitrogen measurement (mass/volume)2023-11-19 11:40:00* Test Item Value Reference Range Interpretation Comme nts Blood Urea Nitrogen (test co de = 3094-0) 90 10-20 TELSerum or plasma creatinine measurement (mass/volume)2023-11-19 11:40:00* Test Item Value Reference Range Interpretation Comme nts Creatinine (test code = 2160-0) 2.8 0.6-1.1 TELGFR/BSA.pred SerPl [id number] 11:40:00* Test Item Value Reference Range Interpretation Comme nts Estimat Glomerular Filtratio n Rate (test code = 57020-6) 18 50-100 TELSerum or plasma glucose measurement (mass/volume)2023-11-19 11:40:00* Test Item Value Reference Range Interpretation Comme nts Glucose Level (test code = 2345-7) 248 60-100 TELSerum or plasma calcium measurement (mass/volume)2023-11-19 11:40:00* Test Item Value Reference Range Interpretation Comme nts Calcium Level (test code = 42367-0) 8.8 8.4-10.2 TELSerum or plasma magnesium measurement (mass/volume)2023-11-18 07:53:00* Test Item Value Reference Range Interpretation Comme nts Magnesium Level (test code = 18088-4) 2.28 1.60-2.60 TELTroponin I SerPl [id number] 16:40:00* Test Item Value Reference Range Interpretation Comme nts Troponin I High Sensitivity (test code = 73852-3) 18 0-14 TELTroponin I SerPl [id number] 16:40:00* Test Item Value Reference Range Interpretation Comme nts Troponin I High Sensitivity Delta (test code = 69561-2) Insignificant TELAutomated blood leukocyte count (number/volume)2023-11-17 14:40:00* Test Item Value Reference Range Interpretation Comme [facility] White Blood Count (test code = 6690-2) 6.5 4.5-11.5 TELBlood erythrocytes automated count (number/volume)2023-11-17 14:40:00* Test Item Value Reference Range Interpretation Comme [facility] Red Blood Count (test code = 789-8) 4.78 3.8-5.1 TELBlood hemoglobin measurement (mass/volume)2023-11-17 14:40:00* Test Item Value Reference Range Interpretation Comme nts Hemoglobin (test code = 718-7) 13.1 12.0-15.2 TELAutomated blood hematocrit (volume fraction)2023-11-17 14:40:00* Test Item Value Reference Range Interpretation Comme [facility] Hematocrit (test code = 4544-3) 41.0 34.0-45.5 TELAutomated erythrocyte mean corpuscular volume (MCV) lnhaxikokbe0735-54-73 14:40:00* Test Item Value Reference Range Interpretation Commcandido [facility] Mean Corpuscular Volume (sebastian t code = 787-2) 86 80-94 TELAutomated erythrocyte mean corpuscular hemoglobin (mass per erythrocyte) 2023-11-17 14:40:00* Test Item Value Reference Range Interpretation Commcandido [facility] Mean Corpuscular Hemoglobin (test code = 785-6) 27.4 27.0-33.0 TELAutomated erythrocyte mean corpuscular hemoglobin concentration measurement (mass/onl7316-95-38 14:40:00* Test Item Value Reference Range [facility]ation [facility] Corp[facility] Hemoglobin Concent (test code = 786-4) 32.0 33.0-37.0 TELAutomated erythrocyte distribution width vedzu9815-86-63 14:40:00* Test Item Value Reference Range Interpretation Comme [facility] Red Cell Distribution Width (test code = 788-0) 14.8 10.7-14.5 TELAutomated blood platelet count (count/volume)2023-11-17 14:40:00* Test Item Value Reference Range Interpretation Comme [facility] Platelet Count (test code = 777-3) 230 150-450 TELAutomated blood platelet mean volume hwqplnnukkr8587-97-62 14:40:00* Test Item Value Reference Range Interpretation Comme nts Mean Platelet Volume (test c ode = 70874-5) 10.1 5.7-10.7 TELAutomated blood neutrophil count as percentage of total pjizszrhri7156-51-02 14:40:00* Test Item Value Reference Range Interpretation Comme nts Neutrophils (%) (Auto) (test code = 770-8) 51 47-75 TELAutomated blood immature granulocyte count as percentage of total leukocytes 2023-11-17 14:40:00* Test Item Value Reference Range Interpretation Comme nts Immature Granulocyte % (Auto ) (test code = 33056-3) 0 0-0 TELAutomated blood lymphocyte count as percentage of total wplgdsjnum3758-45-05 14:40:00* Test Item Value Reference Range Interpretation Comme nts Lymphocytes (%) (Auto) (test code = 736-9) 40 25-44 TELAutomated blood monocyte count as percentage of total bmlewirurw6811-90-57 14:40:00* Test Item Value Reference Range Interpretation Comme nts Monocytes (%) (Auto) (test c ode = 5905-5) 7 3-10 TELAutomated blood eosinophil count as percentage of total faluhpwhnm7429-73-08 14:40:00* Test Item Value Reference Range Interpretation Comme nts Eosinophils (%) (Auto) (test code = 713-8) 3 0-7 TELAutomated blood basophil count as percentage of total yurtzyldbm5783-09-86 14:40:00* Test Item Value Reference Range Interpretation Comme nts Basophils (%) (Auto) (test c ode = 706-2) 0 0-1 TELAutomated blood nucleated erythrocyte count as percentage of total leukocytes 2023-11-17 14:40:00* Test Item Value Reference Range Interpretation Comme nts Nucleated Red Blood Cells % (test code = 23522-7) 0.0 0-0.2 TELAutomated blood neutrophil count (number/volume)2023-11-17 14:40:00* Test Item Value Reference Range Interpretation Comme nts Neutrophils # (Auto) (test c ode = 751-8) 3.3 1.3-6.7 TELAutomated blood lymphocyte count (number/volume)2023-11-17 14:40:00* Test Item Value Reference Range Interpretation Comme nts Lymphocytes # (Auto) (test c ode = 731-0) 2.6 1.4-4.1 TELBlood monocytes automated count (number/volume)2023-11-17 14:40:00* Test Item Value Reference Range Interpretation Comme nts Monocytes # (Auto) (test code = 742-7) 0.4 0-1.3 TELAutomated blood eosinophil fsnbm4576-08-48 14:40:00* Test Item Value Reference Range Interpretation Comme nts Eosinophils # (Auto) (test c ode = 711-2) 0.2 0-0.8 TELAutomated blood basophil count (number/volume)2023-11-17 14:40:00* Test Item Value Reference Range Interpretation Comme nts Basophils # (Auto) (test code = 704-7) 0.0 0-0.1 TELAutomated blood nucleated erythrocyte count (count/volume)2023-11-17 14:40:00 * Test Item Value Reference Range Interpretation Comme nts Nucleated Red Blood Cells # (test code = 771-6) 0.00 0-0.01 TELService comment [id number] 14:40:00* Test Item Value Reference Range Interpretation Comme nts Manual Differential (test co de = 8265-1) Not Ind TELSerum or plasma total bilirubin measurement (mass/volume)2023-11-17 14:40:00 * Test Item Value Reference Range Interpretation Comme nts Total Bilirubin (test code = 1975-2) 0.6 0.2-1.2 TELSerum or plasma aspartate aminotransferase measurement (enzymatic activity/volume)2023-11-17 14:40:00* Test Item Value Reference Range Interpretation Comme nts Aspartate Amino Transf (AST/ SGOT) (test code = 1920-8) 16 5-34 TELSerum or plasma alanine aminotransferase measurement (enzymatic activity/volume)2023-11-17 14:40:00* Test Item Value Reference Range Interpretation Comme nts Alanine Aminotransferase (AL T/SGPT) (test code = 1742-6) 9 0-55 TELSerum or plasma protein measurement (mass/volume)2023-11-17 14:40:00* Test Item Value Reference Range Interpretation Comme nts Total Protein (test code = 2885-2) 8.2 5.8-7.6 TELSerum or plasma albumin measurement (mass/volume)2023-11-17 14:40:00* Test Item Value Reference Range Interpretation Comme nts Albumin (test code = 1751-7) 3.1 3.2-4.7 TELSerum or plasma alkaline phosphatase measurement (enzymatic activity/volume) 2023-11-17 14:40:00* Test Item Value Reference Range Interpretation Comme nts Alkaline Phosphatase (test c ode = 6768-6) 88 40-150 TELSerum or plasma lipase measurement (enzymatic activity/volume)2023-11-17 14:40:00* Test Item Value Reference Range Interpretation Comme nts Lipase (test code = 3040-3) 203 8-78 TELTroponin I SerPl ZM-bTtp1287-26-23 14:40:00* Test Item Value Reference Range Interpretation Comme nts Troponin I High Sensitivity (test code = 29391-9) 16 0-14 TELBNP RghIb-rZir2738-18-23 14:40:00* Test Item Value Reference Range Interpretation Comme nts B-Type Natriuretic Peptide ( test code = 04396-8) 79 0-99 TELAutomated blood eosinophil othid6263-02-85 18:05:00* Test Item Value Reference Range Interpretation Comme nts Eosinophils # (Auto) (test c ode = 711-2) 0.2 0-0.8 TELAutomated blood basophil count (number/volume)2023-09-29 18:05:00* Test Item Value Reference Range Interpretation Comme nts Basophils # (Auto) (test code = 704-7) 0.1 0-0.1 TELAutomated blood nucleated erythrocyte count (count/volume)2023-09-29 18:05:00 * Test Item Value Reference Range Interpretation Comme nts Nucleated Red Blood Cells # (test code = 771-6) 0.00 0-0.01 TELService comment [id number] 18:05:00* Test Item Value Reference Range Interpretation Comme nts Manual Differential (test co de = 8265-1) Not Ind TELAutomated blood leukocyte count (number/volume)2023-09-29 18:05:00* Test Item Value Reference Range Interpretation Comme nts White Blood Count (test code = 6690-2) 7.0 4.5-11.5 TELBlood erythrocytes automated count (number/volume)2023-09-29 18:05:00* Test Item Value Reference Range Interpretation Comme nts Red Blood Count (test code = 789-8) 5.00 3.8-5.1 TELBlood hemoglobin measurement (mass/volume)2023-09-29 18:05:00* Test Item Value Reference Range Interpretation Comme nts Hemoglobin (test code = 718-7) 13.9 12.0-15.2 TELAutomated blood hematocrit (volume fraction)2023-09-29 18:05:00* Test Item Value Reference Range Interpretation Comme nts Hematocrit (test code = 4544-3) 43.3 34.0-45.5 TELAutomated erythrocyte mean corpuscular volume (MCV) hzxsewhwpsa0023-82-69 18:05:00* Test Item Value Reference Range Interpretation Comme nts Mean Corpuscular Volume (sebastian t code = 787-2) 87 80-94 TELAutomated erythrocyte mean corpuscular hemoglobin (mass per erythrocyte) 2023-09-29 18:05:00* Test Item Value Reference Range Interpretation Comme nts Mean Corpuscular Hemoglobin (test code = 785-6) 27.8 27.0-33.0 TELAutomated erythrocyte mean corpuscular hemoglobin concentration measurement (mass/tws7621-04-43 18:05:00* Test Item Value Reference Range Interpretation Comme nts Mean Corpuscular Hemoglobin Concent (test code = 786-4) 32.1 33.0-37.0 TELAutomated erythrocyte distribution width hynfb0429-42-12 18:05:00* Test Item Value Reference Range Interpretation Comme nts Red Cell Distribution Width (test code = 788-0) 14.7 10.7-14.5 TELAutomated blood platelet count (count/volume)2023-09-29 18:05:00* Test Item Value Reference Range Interpretation Comme nts Platelet Count (test code = 777-3) 235 150-450 TELAutomated blood platelet mean volume twligjdxtld8989-46-73 18:05:00* Test Item Value Reference Range Interpretation Comme nts Mean Platelet Volume (test c ode = 17027-0) 9.0 5.7-10.7 TELAutomated blood neutrophil count as percentage of total ehmltevtcv1194-04-53 18:05:00* Test Item Value Reference Range Interpretation Comme nts Neutrophils (%) (Auto) (test code = 770-8) 55 47-75 TELAutomated blood immature granulocyte count as percentage of total leukocytes 2023-09-29 18:05:00* Test Item Value Reference Range Interpretation Comme nts Immature Granulocyte % (Auto ) (test code = 69808-4) 0 0-0 TELAutomated blood lymphocyte count as percentage of total ecnwklwtwc7099-56-50 18:05:00* Test Item Value Reference Range Interpretation Comme nts Lymphocytes (%) (Auto) (test code = 736-9) 37 25-44 TELAutomated blood monocyte count as percentage of total pbliimkqwg5057-37-70 18:05:00* Test Item Value Reference Range Interpretation Comme nts Monocytes (%) (Auto) (test c ode = 5905-5) 5 3-10 TELAutomated blood eosinophil count as percentage of total ykzsnvzrxc9429-25-19 18:05:00* Test Item Value Reference Range Interpretation Comme nts Eosinophils (%) (Auto) (test code = 713-8) 2 0-7 TELAutomated blood basophil count as percentage of total yqysjckkhj9204-97-74 18:05:00* Test Item Value Reference Range Interpretation Comme nts Basophils (%) (Auto) (test c ode = 706-2) 1 0-1 TELAutomated blood nucleated erythrocyte count as percentage of total leukocytes 2023-09-29 18:05:00* Test Item Value Reference Range Interpretation Comme nts Nucleated Red Blood Cells % (test code = 80555-2) 0.0 0-0.2 TELAutomated blood neutrophil count (number/volume)2023-09-29 18:05:00* Test Item Value Reference Range Interpretation Comme nts Neutrophils # (Auto) (test c ode = 751-8) 3.8 1.3-6.7 TELAutomated blood lymphocyte count (number/volume)2023-09-29 18:05:00* Test Item Value Reference Range Interpretation Comme nts Lymphocytes # (Auto) (test c ode = 731-0) 2.6 1.4-4.1 TELBlood monocytes automated count (number/volume)2023-09-29 18:05:00* Test Item Value Reference Range Interpretation Comme nts Monocytes # (Auto) (test code = 742-7) 0.4 0-1.3 TELUrinalysis specimen collection xwpsmd7263-10-21 15:01:00* Test Item Value Reference Range Interpretation Comme nts Urine Source (test code = 79116-9) URINE TELColor of Urine by Vpxw5355-78-39 15:01:00* Test Item Value Reference Range Interpretation Comme nts Urine Color (test code = 50327-4) Colorless Yel-Yareli * TELUrine clarity aetvzajhirvqp5106-34-65 15:01:00* Test Item Value Reference Range Interpretation Comme nts Urine Appearance (test code = 96593-3) Clear Clear * TELUrine pH measurement by automated test cxbws4326-82-88 15:01:00* Test Item Value Reference Range Interpretation Comme nts Urine pH (test code = 25442-4) 6.0 5.0-8.0 TELSpecific gravity of Urine by Automated test brlnk6205-22-29 15:01:00* Test Item Value Reference Range Interpretation Comme nts Urine Specific Pinch (test code = 92733-4) 1.009 1.005-1.030 TELUrine protein measurement by automated test strip (mass/volume)2023-09-29 15:01:00* Test Item Value Reference Range Interpretation Comme nts Urine Protein (test code = 76288-9) Negative Negative * TELUrine glucose measurement by automated test strip (mass/volume)2023-09-29 15:01:00* Test Item Value Reference Range Interpretation Comme nts Urine Glucose (UA) (test cod e = 32555-8) 150 Negative * TELKetones [Mass/volume] in Urine by Automated test gjdhp5426-20-43 15:01:00* Test Item Value Reference Range Interpretation Comme nts Urine Ketones (test code = 00470-9) Negative Negative * TELUrine erythrocytes count by automated test strip (number/volume)2023-09-29 15:01:00* Test Item Value Reference Range Interpretation Comme nts Urine Occult Blood (test cod e = 77280-9) Negative Negative * TELUrine nitrite detection by automated test gudpm2605-88-69 15:01:00* Test Item Value Reference Range Interpretation Comme nts Urine Nitrite (test code = 31406-4) Negative Negative TELUrine total bilirubin measurement by automated test strip (mass/volume) 2023-09-29 15:01:00* Test Item Value Reference Range Interpretation Comme nts Urine Bilirubin (test code = 30257-4) Negative Negative TELUrine urobilinogen measurement by automated test strip (mass/volume) 2023-09-29 15:01:00* Test Item Value Reference Range Interpretation Comme nts Urine Urobilinogen (test cod e = 38689-1) Negative 0.0-1.0 TELUrine leukocytes count by automated test strip (number/volume)2023-09-29 15:01:00* Test Item Value Reference Range Interpretation Comme nts Urine Leukocyte Esterase (te st code = 03976-2) 500 Negative TELUrine sediment erythrocyte count by microscopy (number/high power field) 2023-09-29 15:01:00* Test Item Value Reference Range Interpretation Comme nts Urine RBC (test code = 43492-2) 0-2 0-2 TELUrine sediment leukocyte count by microscopy (number/high power field) 2023-09-29 15:01:00* Test Item Value Reference Range Interpretation Comme nts Urine WBC (test code = 5821-4) 21-40 0-5 TELUrine sediment epithelial cell count by microscopy (number/high power field) 2023-09-29 15:01:00* Test Item Value Reference Range Interpretation Comme nts Urine Epithelial Cells (test code = 5787-7) Rare Few TELUrine sediment crystal count by microscopy (number/high power field) 2023-09-29 15:01:00* Test Item Value Reference Range Interpretation Comme nts Urine Crystals (test code = 40306-0) None Seen None * TELUrine sediment bacteria count by microscopy (number/high power field) 2023-09-29 15:01:00* Test Item Value Reference Range Interpretation Comme nts Urine Bacteria (test code = 5769-5) Few None TELUrine sediment casts count by microscopy (number/low power field)2023-09-29 15:01:00* Test Item Value Reference Range Interpretation Comme nts Urine Casts (test code = 9842-6) Present None * TELUrine sediment hyaline cast count by microscopy (number/low power field) 2023-09-29 15:01:00* Test Item Value Reference Range Interpretation Comme nts Urine Hyaline Casts (test co de = 5796-8) 2-5 0-1 TELYeast detection in urine sediment by light pfajnakxuc7098-21-24 15:01:00* Test Item Value Reference Range Interpretation Comme nts Urine Yeast (test code = 44600-2) None Seen None TELService comment 15:01:00* Test Item Value Reference Range Interpretation Comme nts Urinalysis Comment (test code = 8262-8) * See_Comment [Automated [employer] ge] The system which generated this result transmitted reference range: *. The reference range was not used to interpret this result as normal/abnormal. TELService comment 15:01:00* Test Item Value Reference Range Interpretation Comme nts Urine Culture Indicated (sebastian t code = 8264-4) To follow TELBacterial urine wscjmqn4718-73-46 15:01:00* Test Item Value Reference Range Interpretation Comme nts Urine Culture (test code = 630-4) No growth TELSodium KomZw-qQkp0939-48-05 14:00:00* Test Item Value Reference Range Interpretation Comme nts Sodium Level (test code = 2951-2) 135 136-145 TELSerum or plasma potassium measurement (moles/volume)2023-09-29 14:00:00* Test Item Value Reference Range Interpretation Comme nts Potassium Level (test code = 2823-3) 4.5 3.5-5.1 TELSerum or plasma chloride measurement (moles/volume)2023-09-29 14:00:00* Test Item Value Reference Range Interpretation Comme nts Chloride Level (test code = 2075-0) 103 98-107 TELSerum or plasma total carbon dioxide measurement (moles/volume)2023-09-29 14:00:00* Test Item Value Reference Range Interpretation Comme nts Carbon Dioxide Level (test c ode = 8-9) 19 23-31 TELSerum or plasma anion gap determination (moles/volume)2023-09-29 14:00:00* Test Item Value Reference Range Interpretation Comme nts Anion Gap (test code = 55285-1) 18 8-18 TELSerum or plasma urea nitrogen measurement (mass/volume)2023-09-29 14:00:00* Test Item Value Reference Range Interpretation Comme nts Blood Urea Nitrogen (test co de = 3094-0) 38 10-20 TELSerum or plasma creatinine measurement (mass/volume)2023-09-29 14:00:00* Test Item Value Reference Range Interpretation Comme nts Creatinine (test code = 2160-0) 1.9 0.6-1.1 TELGFR/BSA.pred SerPl FKHX-DeVEdd4073-79-05 14:00:00* Test Item Value Reference Range Interpretation Comme nts Estimat Glomerular Filtratio n Rate (test code = 00423-4) 27 50-100 TELSerum or plasma glucose measurement (mass/volume)2023-09-29 14:00:00* Test Item Value Reference Range Interpretation Comme nts Glucose Level (test code = 2345-7) 313 60-100 TELSerum or plasma calcium measurement (mass/volume)2023-09-29 14:00:00* Test Item Value Reference Range Interpretation Comme nts Calcium Level (test code = 90985-6) 9.7 8.4-10.2 TELSerum or plasma total bilirubin measurement (mass/volume)2023-09-29 14:00:00 * Test Item Value Reference Range Interpretation Comme nts Total Bilirubin (test code = 1975-2) 0.6 0.2-1.2 TELSerum or plasma aspartate aminotransferase measurement (enzymatic activity/volume)2023-09-29 14:00:00* Test Item Value Reference Range Interpretation Comme nts Aspartate Amino Transf (AST/ SGOT) (test code = 1920-8) 19 5-34 TELSerum or plasma alanine aminotransferase measurement (enzymatic activity/volume)2023-09-29 14:00:00* Test Item Value Reference Range Interpretation Comme nts Alanine Aminotransferase (AL T/SGPT) (test code = 1742-6) 12 0-55 TELSerum or plasma protein measurement (mass/volume)2023-09-29 14:00:00* Test Item Value Reference Range Interpretation Comme nts Total Protein (test code = 2885-2) 8.7 5.8-7.6 TELSerum or plasma albumin measurement (mass/volume)2023-09-29 14:00:00* Test Item Value Reference Range Interpretation Comme nts Albumin (test code = 1751-7) 3.4 3.2-4.7 TELSerum or plasma alkaline phosphatase measurement (enzymatic activity/volume) 2023-09-29 14:00:00* Test Item Value Reference Range Interpretation Comme nts Alkaline Phosphatase (test c ode = 6768-6) 119 40-150 TELUS Lower extremity veins - unilateral sjmsxss4281-67-53 04:06:02ORDER 300: US VENO EXT. UNILAT (LOINC: 53479-9)ORDER DATE: September 26, 2023 8:18:00 [facility] [id number] 04:06:00 [facility] : 1950 Sex: F[address] [id number] IMAGING REPORTPatient Name: IBETH ALVRAENGAINEDate of Service: 33-09-1507Gwa: 73 Sex: F Order #: [id number] [facility] 1950 [facility] Number: [id number] Record Number: [id number] Hospital Number: [id number] Physician: DANNY NATIONOrdering Physician: DANNY NATIONPROCEDURE: US VENO EXT. UNILATINDICATIONS: please see worksheetEXAM: Right lower Extremity Venous DopplerComparison:NoneTECHNIQUE:The common femoral and superficial femoral veins were followed from thelevel of the inguinal ligament down to the level of the adductor canal.The popliteal vein was imaged to the level of the trifurcation. Proximalcalf veins were also visualized.FINDINGS:No intraluminal thrombus is demonstrated in any of the visualized vessels.There is normal compressibility throughout. Venous flow was documented oncolor-flow imaging and pulsed Doppler with augmentation of flow on calfcompression. No sunshine's cyst is present.IMPRESSION:No evidence of deep vein thrombosis in the right lower extremity.This document has been electronically signed by: Debby Bryant MD on09/26/2023 04:06:02Legally authenticated by MANNY LA 2023-09-26 04:06:02 JGLUQOYT0173-20-62 03:38:00 [facility] : 1950 Sex: F[address] [id number] IMAGING REPORTPatient Name: IBETH ALVARENGAINEDate of Service: 51-28-2452Jcg: 73 Sex: F Order #: [id number] [facility] 1950 [facility] Number: [id number] Record Number: [id number] Hospital Number: [id number] Physician: DANNY NATIONOrdering Physician: DANNY NATIONPROCEDURE: SHOULDERINDICATIONS: dX: pain right side of body pt sts: c/o pain to right side ofbody x 3 weeks and has worsened todayhx: HTN, DM, High cholesterol no hx ofsurgpsv: kay3 views right shoulderComparison: NoneFindings:No acute fractures or dislocations. Nkgu-sn-jtacdyid degenerative changespresent at the right glenohumeral joint. Ueic-kr-nciarwqu degenerativechanges are also present at the right acromioclavi cular joint.Normal visualized right chest.Impression:1. No acute fracture or dislocation injury identified at the rightshoulder.2. Osiz-qe-bvtklijs degenerative changes at the right glenohumeral andright acromioclavicular joints.This document has been electronically signed by: Pastor Pagan MD on08/2023 03:36:48Legally authenticated by LATASHA MACKAY 2023-09-26 03:36:48HIP JOINT 2 [id number] 03:37:00 [facility] : 1950 Sex: F[address] [id number] IMAGING REPORTPatient Name: IBETH ALVARENGAINEDate of Service: 90-14-0231Mpn: 73 Sex: F Order #: [id number] Room: ERSDOB: 1950 X-Ray Number: [id number] Record Number: [id number] Hospital Number: [id number] Physician: Kamran NATION Physician: DANNY NATIONPROCEDURE: HIP JOINT 2 VIEWSINDICATIONS: dX: pain right side of body pt sts: c/o pain to right side ofbody x 3 weeks and has worsened todayhx: HTN, DM, High cholesterol no hx ofsurgpsv: kay2 views right hipComparison: NoneFindings:This examination is mildly limited by overlying soft tissues. No acutefracture or dislocation injury identified. Possible oeak-oy-cjxrlkrilwckdojolzfd changes of the right hip.No radiopaque foreign body.Impression:1. Mildly limited right hip radiograph examination. No acute fracture ordislocation injury identified.This document has been electronically signed by: Pastor Pagan MD 09/26/2023 03:36:07Legally authenticated by LATASHA MACKAY 2023-09-26 03:36:07Shoulder F-[id number] 03:36:48ORDER 200: SHOULDER (LOINC: 43720-0)ORDER DATE: September 26, 2023 8:18:00 AM [facility] [place], operated by [facility])XR Hip [id number] 03:36:07ORDER 100: HIP JOINT 2 VIEWS (LOINC: 99560-9)ORDER DATE: September 26, 2023 8:18:00 AM [facility]GR[facility]993-66-38 12:29:00* Test Item Value Reference Range Interpretation Comme nts SODIUM (test code = NA) 133 MMOL/L 137-145 L K+ (test code = KSERUM) 4.1 MMOL/L 3.5-5.1 CHLORIDE (test code = CL) 96 MMOL/L 98-107 L CO2 (test code = CO2) 29 MMOL/L 22-30 BUN (test code = BUN) 34 MG/DL 7-17 H CREA (test code = CREA) 1.7 MG/DL 0.7-1.2 H GLUCOSE (test code = GLUCOSE) 387 MG/DL 70-99 H Fasting glucos e normal <100 MG/DL- [place] [employer] recommendation CALCIUM (test code = CABLOOD) 9.3 MG/DL 8.4-10.2 TOTPROT (test code = TOTPROT) 8.2 G/DL 6.3-8.2 ALBUMIN (test code = ALBSERUM) 3.9 G/DL 3.5-5.0 BILITOT (test code = BILITOT) 0.7 MG/DL 0.2-1.3 AST (test code = AST) 31 U/L 15-46 PHOSALK (test code = PHOSALK) 122 U/L 38-126 ALTV (test code = ALTV) 25 U/L 13-69 GFR (test code = GFR) 31 mL/min/1.73m2 A GFR of >90 mL/min/1.73m2 is considered normal. The GFR calculation on patients over 70 years of age is not validated by the dog groomer and may not represent the patients true renal function. Comprehensive metabolic 2000 panel - Serum or [id number] 12:29:00* Test Item Value Reference Range Interpretation Comme nts Sodium [Moles/volume] in Blood (test code = 2947-0) 133 MMOL/L 137.0-145.0 L Potassium [Moles/volume] in Blood (test code = 6298-4) 4.1 MMOL/L 3.5-5.1 N Chloride [Moles/volume] in Blood (test code = 2069-3) 96 MMOL/L 98.0-107.0 L Carbon dioxide, total [Moles/volume] in Blood (test code = 53391-4) 29 MMOL/L 22.0-30.0 N Urea nitrogen [Mass/volume] in Serum or Plasma (test code = 3094-0) 34 MG/DL 7.0-17.0 H Creatinine [Mass/volume] in Blood (test code = 58511-7) 1.7 MG/DL 0.7-1.2 H Glucose [Mass/volume] in Blood (test code = 2339-0) 387 MG/DL 70.0-99.0 H Calcium [Mass/volume] in Serum or Plasma (test code = 20252-3) 9.3 MG/DL 8.4-10.2 N Protein [Mass/volume] in Serum or Plasma (test code = 2885-2) 8.2 G/DL 6.3-8.2 N Albumin [Presence] in Serum or Plasma (test code = 34465-2) 3.9 G/DL 3.5-5.0 N Bilirubin direct and total panel [Mass/volume] - Serum or Plasma (test code = 96469-7) 0.7 MG/DL 0.2-1.3 N Aspartate aminotransferase [Enzymatic activity/volume] in Serum or Plasma (test code = 1920-8) 31 U/L 15.0-46.0 N Alkaline phosphatase [Enzymatic activity/volume] in Serum or Plasma (test code = 6768-6) 122 U/L 38.0-126.0 N Alanine aminotransferase [Enzymatic activity/volume] in Serum or Plasma (test code = 1742-6) 25 U/L 13.0-69.0 N Estimated or measured glomerular filtration rate less than 50 percent [- Reported] (test code = 95098-4) 31 mL/min/1.73m2 N [id number]* Test Item Value Reference Range Interpretation Comme nts WBC (test code = WBC) 6.0 K/UL 3.5-10.9 RBC (test code = RBC) 5.44 M/UL 4.0-5.0 H HGB (test code = HGB) 14.8 G/DL 11.5-15.5 HCT (test code = HCT) 46.0 % 34-46 MCV (test code = MCV) 84.6 FL 80-98 MCH (test code = MCH) 27.2 PG 28-32 L MCHC (test code = MCHC) 32.2 G/DL 32.5-36.5 L RDW (test code = RDW) 15.1 % 11.5-14.5 H PLT (test code = PLT) 217 K/UL 150-450 MPV (test code = MPV) 10.0 FL 7.4-10.4 MANDIFF (test code = MANDIFF) NO SCAN (test code = SCAN) NO NEUT% (test code = NEUT%) 59.5 % 40-75 LYMPH% (test code = LYMPH%) 30.4 % 24-44 MONO% (test code = MONO%) 6.7 % 0-13 EOS% (test code = EOS%) 2.7 % 0-4 BASO % (test code = BASO%) 0.7 % 0-2 IG (test code = IG) 0 % 0-1 IG% (test code = IG%) 0.0 % 0-1 IG% = Metamyeloc ytes, Myelocytes, and Promyelocytes. (Immature neutrophils not including "bands".) > 3% IG indicates risk of sepsis NRBC% (test code = NRBC%) 0 /100 WBC ABS NEUT (test code = NEUT) 3.6 K/UL 1.2-7.2 CBC W Auto Differential panel - [id number] 11:19:00* Test Item Value Reference Range Interpretation Comme nts Leukocytes other [Identifier ] in Blood by Automated count (test code = 18433-3) 6.0 K/UL 3.5-10.9 N Erythrocytes [#/volume] in B lood (test code = 37168-5) 5.44 M/UL 4.0-5.0 H Hemoglobin A/Hemoglobin.tota l in Blood (test code = 4546-8) 14.8 G/DL 11.5-15.5 N Hematocrit [Volume Fraction] of Blood (test code = 24166-7) 46.0 % 34.0-46.0 N Erythrocyte mean corpuscular volume [Entitic volume] (test code = 38427-4) 84.6 FL 80.0-98.0 N Erythrocyte mean corpuscular hemoglobin [Entitic mass] (test code = 46463-4) 27.2 PG 28.0-32.0 L Erythrocyte mean corpuscular hemoglobin concentration [Mass/volume] (test code = 65501-4) 32.2 G/DL 32.5-36.5 L Erythrocyte distribution wid th [Ratio] (test code = 91866-8) 15.1 % 11.5-14.5 H Platelets panel - Blood by Automated count (test code = 89892-6) 217 K/UL 150.0-450.0 N Platelet mean volume [Entiti c volume] in Blood by Automated count (test code = 00922-7) 10.0 FL 7.4-10.4 N Neutrophils.segmented/100 leukocytes in Blood (test code = 60015-8) 59.5 % 40.0-75.0 N Lymphocytes Variant/100 leuk ocytes in Blood (test code = 15222-6) 30.4 % 24.0-44.0 N Lymphocytes+Monocytes/100 leukocytes in Blood (test code = 4662-3) 6.7 % 0.0-13.0 N Eosinophils [#/volume] in Bl ood (test code = 58948-1) 2.7 % 0.0-4.0 N Basophils [#/volume] in Bloo d (test code = 17679-9) 0.7 % 0.0-2.0 N Immature granulocytes/100 leukocytes in Blood (test code = 90948-8) 0.0 % 0.0-1.0 N Nucleated erythrocytes [#/vo lume] in Blood (test code = 38425-0) 0 /100 WBC N Neutrophils [#/volume] in Bl ood (test code = 88286-6) 3.6 K/UL 1.2-7.2 N [facility])Comprehensive metabolic 2000 panel - Serum or P 2022-03-12 12:17:00* Test Item Value Reference Range Interpretation Comme nts Sodium [Moles/volume] in Blood (test code = 2947-0) 140 MMOL/L 137.0-145.0 N Potassium [Moles/volume] in Blood (test code = 6298-4) 3.2 MMOL/L 3.5-5.1 L Chloride [Moles/volume] in Blood (test code = 2069-3) 105 MMOL/L 98.0-107.0 N Carbon dioxide, total [Moles/volume] in Blood (test code = 31830-9) 31 MMOL/L 22.0-30.0 H Urea nitrogen [Mass/volume] in Serum or Plasma (test code = 3094-0) 35 MG/DL 7.0-17.0 H Creatinine [Mass/volume] in Blood (test code = 81500-2) 1.8 MG/DL 0.7-1.2 H Glucose [Mass/volume] in Blood (test code = 2339-0) 94 MG/DL 70.0-99.0 N Calcium [Mass/volume] in Serum or Plasma (test code = 57485-8) 9.2 MG/DL 8.4-10.2 N Protein [Mass/volume] in Serum or Plasma (test code = 2885-2) 7.4 G/DL 6.3-8.2 N Albumin [Presence] in Serum or Plasma (test code = 32384-9) 3.2 G/DL 3.5-5.0 L Bilirubin direct and total panel [Mass/volume] - Serum or Plasma (test code = 18924-7) 0.5 MG/DL 0.2-1.3 N Aspartate aminotransferase [Enzymatic activity/volume] in Serum or Plasma (test code = 1920-8) 26 U/L 15.0-46.0 N Alkaline phosphatase [Enzymatic activity/volume] in Serum or Plasma (test code = 6768-6) 93 U/L 38.0-126.0 N ALTV (test code = ALTV) 15 U/L 13.0-69.0 N Estimated or measured glomerular filtration rate less than 50 percent [- Reported] (test code = 48959-6) 29 mL/min/1.73m2 N [facility] ([place])CBC W Auto Differential panel - [id number] 11:38:00* Test Item Value Reference Range Interpretation Comme nts Leukocytes other [Identifier ] in Blood by Automated count (test code = 12946-1) 6.2 K/UL 3.5-10.9 N Erythrocytes [#/volume] in B lood (test code = 22380-9) 5.06 M/UL 4.0-5.0 H Hemoglobin A/Hemoglobin.tota l in Blood (test code = 4546-8) 13.4 G/DL 11.5-15.5 N Hematocrit [Volume Fraction] of Blood (test code = 38662-7) 42.8 % 34.0-46.0 N Erythrocyte mean corpuscular volume [Entitic volume] (test code = 74934-7) 84.6 FL 80.0-98.0 N Erythrocyte mean corpuscular hemoglobin [Entitic mass] (test code = 74388-9) 26.5 PG 28.0-32.0 L Erythrocyte mean corpuscular hemoglobin concentration [Mass/volume] (test code = 98065-7) 31.3 G/DL 32.5-36.5 L Erythrocyte distribution wid th [Ratio] (test code = 21571-6) 15.9 % 11.5-14.5 H Platelets panel - Blood by Automated count (test code = 33446-9) 217 K/UL 150.0-450.0 N Platelet mean volume [Entiti c volume] in Blood by Automated count (test code = 33347-7) 10.2 FL 7.4-10.4 N Neutrophils.segmented/100 leukocytes in Blood (test code = 36883-3) 57.2 % 40.0-75.0 N Lymphocytes Variant/100 leuk ocytes in Blood (test code = 58627-2) 32.6 % 24.0-44.0 N Lymphocytes+Monocytes/100 leukocytes in Blood (test code = 4662-3) 6.0 % 0.0-13.0 N Eosinophils [#/volume] in Bl ood (test code = 84539-9) 3.4 % 0.0-4.0 N Basophils [#/volume] in Bloo d (test code = 87915-5) 0.6 % 0.0-2.0 N IG (test code = IG) 0 % 0.0-1.0 N IG% (test code = IG%) 0.2 % 0.0-1.0 N NRBC% (test code = NRBC%) 0 /100 WBC N Neutrophils [#/volume] in Bl ood (test code = 96481-3) 3.5 K/UL 1.2-7.2 N [facility] ([place])PROTEIN S TOTAL CLOT [id number] 07:55:00* Test Item Value Reference Range Interpretation Comme nts PROTEIN S, TOTAL (test code = PROTST) 117 % 60-150 TESTING PERFORME D AT [facility] [address] [address]/ [place]. Protein S/Coagulation factor IX [Mass Ratio] [id number] 08:59:00* Test Item Value Reference Range Interpretation Comme nts Protein S/Coagulation factor IX [Mass Ratio] in Platelet poor plasma by Coagulation assay (test code = 44742-6) 39 % 63.0-140.0 L [facility])PROTEIN S FUNCTIONAL CLOT [id number] 03:06:00* Test Item Value Reference Range Interpretation Comme nts PROTEIN S-FUNCTIONAL (test code = PROTS) 39 % 63-140 L A deficiency of protein S (PS), either congenital or acquired, increases the risk of thromboembolism. PS activity levels may be falsely low in individuals with APCR/Factor V Leiden. Consider performing free protein S antigen in those with APCR/Factor V Leiden before making a diagnosis of protein S deficiency. Acquired PS deficiency is more common than congenital deficiency. PS values decrease with normal , and are also dependent on age, sex and hormone status. PS values tend to be lower in a younger age group and lower in women than in men. Levels may be decreased in pre-menopausal women on oral contraceptive agents. Acquired deficiency can occur as a result of vitamin K deficiency or antagonism, severe hepatic disorders, (hepatitis, cirrhosis, etc.), nephrotic syndrome, inflammatory bowel disease, certain chemotherapeutic agents, L-asparaginse therapy, sepsis, disseminated intravascular coagulation (DIC) and acute thrombosis. Levels may be decreased in patients with polycythemia vera, sickle cell disease and essential thrombocythemia. Repeat evaluation on a new plasma sample to confirm or refute this result should be considered, after ruling out acquired causes, depending on the clinical scenario. Performed at: [facility] [address] [address], [place], [place] [id number] [employer] Specialist: Fady Bautista MD, Phone: [phone] LUPUS ANTICOAG [id number] 02:06:00* Test Item Value Reference Range Interpretation Comme nts PTT LUPUS ANTICOAGULATION (test code = PTTLA) 41.8 sec 0.0-51.9 DILUTE JUAN VIPER VENTOM (test code = DRVVT) 67.4 sec 0.0-47.0 H INTERPRETATION (test code = LAINTERP) Comment: No lupus anticoagulant was detected. These results are consi stent with specific inhibitors to one or more common pathway factors (X , V, II or fibrinogen). Performed at: [facility] [place] [address] [id number] [employer] Specialist: Fady Bautista MD, Phone: [phone] Performed at: [address] [id number] [employer] Specialist: Rober Jain MD, Phone: [phone] DRVVT MIX (test code = DRVVTMX) 51.5 sec 0.0-40.4 H Performed at: [facility] [place] [address] [place] [address], [place], [place] [id number] [employer] Specialist: Fady Bautista MD, Phone: [phone] DRVVT CONFIRM (test code = DRVVTC) 1.0 ratio 0.8-1.2 Performed at: [facility] [place] [address] [place] [address], [place] [id number] [employer] Specialist: Fady aButista MD, Phone: [phone] CARDIOLIPIN ABS, IGG, IGM, [id number] 16:10:00* Test Item Value Reference Range Interpretation Comme nts ANTICARDIOLIPIN AB, IGG (test code = CARDIGG) <9 GPL U/mL 0-14 Negative: <15 Indeterminate: 15 - 20 Low-Med Positive: >20 - 80 High Positive: >80 ANTICARDIOLIPIN AB, IGM (test code = CARDIGM) 35 MPL U/mL 0-12 H Negative: <13 Indeterminate: 13 - 20 Low-Med Positive: >20 - 80 High Positive: >80 ANTICARDILIPIN, IGA (test code = CARDIGA) 13 APL U/mL 0-11 H Negative: <12 Indeterminate: 12 - 20 Low-Med Positive: >20 - 80 High Positive: >80 Performed at: [facility] [address] [id number] [employer] Specialist: Fady Bautista MD, Phone: [phone] [id number] 13:30:00* Test Item Value Reference Range Interpretation Comme nts SODIUM (test code = NA) 139 MMOL/L 137-145 K+ (test code = KSERUM) 3.6 MMOL/L 3.5-5.1 CHLORIDE (test code = CL) 105 MMOL/L 98-107 CO2 (test code = CO2) 30 MMOL/L 22-30 BUN (test code = BUN) 21 MG/DL 7-17 H CREA (test code = CREA) 1.5 MG/DL 0.7-1.2 H GLUCOSE (test code = GLUCOSE) 101 MG/DL 70-99 H Fasting glucos e normal <100 MG/DL- [place] [employer] recommendation CALCIUM (test code = CABLOOD) 8.4 MG/DL 8.4-10.2 TOTPROT (test code = TOTPROT) 7.7 G/DL 6.3-8.2 ALBUMIN (test code = ALBSERUM) 3.3 G/DL 3.5-5.0 L BILITOT (test code = BILITOT) 0.7 MG/DL 0.2-1.3 AST (test code = AST) 22 U/L 15-46 PHOSALK (test code = PHOSALK) 105 U/L 38-126 ALTV (test code = ALTV) 13 U/L 13-69 GFR (test code = GFR) 36 mL/min/1.73m2 A GFR of >90 mL/min/1.73m2 is considered normal. The GFR calculation on patients over 70 years of age is not validated by the dog groomer and may not represent the patients true renal function. Comprehensive metabolic 2000 panel - Serum or [id number] 13:30:00* Test Item Value Reference Range Interpretation Comme nts Sodium [Moles/volume] in Blood (test code = 2947-0) 139 MMOL/L 137.0-145.0 N Potassium [Moles/volume] in Blood (test code = 6298-4) 3.6 MMOL/L 3.5-5.1 N Chloride [Moles/volume] in Blood (test code = 2069-3) 105 MMOL/L 98.0-107.0 N Carbon dioxide, total [Moles/volume] in Blood (test code = 27395-7) 30 MMOL/L 22.0-30.0 N Urea nitrogen [Mass/volume] in Serum or Plasma (test code = 3094-0) 21 MG/DL 7.0-17.0 H Creatinine [Mass/volume] in Blood (test code = 58289-4) 1.5 MG/DL 0.7-1.2 H Glucose [Mass/volume] in Blood (test code = 2339-0) 101 MG/DL 70.0-99.0 H Calcium [Mass/volume] in Serum or Plasma (test code = 16954-9) 8.4 MG/DL 8.4-10.2 N Protein [Mass/volume] in Serum or Plasma (test code = 2885-2) 7.7 G/DL 6.3-8.2 N Albumin [Presence] in Serum or Plasma (test code = 96173-7) 3.3 G/DL 3.5-5.0 L Bilirubin direct and total panel [Mass/volume] - Serum or Plasma (test code = 04792-2) 0.7 MG/DL 0.2-1.3 N Aspartate aminotransferase [Enzymatic activity/volume] in Serum or Plasma (test code = 1920-8) 22 U/L 15.0-46.0 N Alkaline phosphatase [Enzymatic activity/volume] in Serum or Plasma (test code = 6768-6) 105 U/L 38.0-126.0 N ALTV (test code = ALTV) 13 U/L 13.0-69.0 N Estimated or measured glomerular filtration rate less than 50 percent [- Reported] (test code = 31946-5) 36 mL/min/1.73m2 N [id number] 11:55:00* Test Item Value Reference Range Interpretation Comme nts WBC (test code = WBC) 5.9 K/UL 3.5-10.9 RBC (test code = RBC) 4.92 M/UL 4.0-5.0 HGB (test code = HGB) 13.1 G/DL 11.5-15.5 HCT (test code = HCT) 42.4 % 34-46 MCV (test code = MCV) 86.2 FL 80-98 MCH (test code = MCH) 26.6 PG 28-32 L MCHC (test code = MCHC) 30.9 G/DL 32.5-36.5 L RDW (test code = RDW) 15.2 % 11.5-14.5 H PLT (test code = PLT) 254 K/UL 150-450 MPV (test code = MPV) 9.8 FL 7.4-10.4 MANDIFF (test code = MANDIFF) NO SCAN (test code = SCAN) NO NEUT% (test code = NEUT%) 48.3 % 40-75 LYMPH% (test code = LYMPH%) 39.0 % 24-44 MONO% (test code = MONO%) 8.7 % 0-13 EOS% (test code = EOS%) 2.9 % 0-4 BASO % (test code = BASO%) 0.9 % 0-2 IG (test code = IG) 0 % 0-1 IG% (test code = IG%) 0.2 % 0-1 IG% = Metamyeloc ytes, Myelocytes, and Promyelocytes. (Immature neutrophils not including "bands".) > 3% IG indicates risk of sepsis NRBC% (test code = NRBC%) 0 /100 WBC ABS NEUT (test code = NEUT) 2.8 K/UL 1.2-7.2 CBC W Auto Differential panel - [id number] 11:55:00* Test Item Value Reference Range Interpretation Comme nts Leukocytes other [Identifier ] in Blood by Automated count (test code = 48564-6) 5.9 K/UL 3.5-10.9 N Erythrocytes [#/volume] in B lood (test code = 66253-1) 4.92 M/UL 4.0-5.0 N Hemoglobin A/Hemoglobin.tota l in Blood (test code = 4546-8) 13.1 G/DL 11.5-15.5 N Hematocrit [Volume Fraction] of Blood (test code = 74852-3) 42.4 % 34.0-46.0 N Erythrocyte mean corpuscular volume [Entitic volume] (test code = 00160-9) 86.2 FL 80.0-98.0 N Erythrocyte mean corpuscular hemoglobin [Entitic mass] (test code = 41127-3) 26.6 PG 28.0-32.0 L Erythrocyte mean corpuscular hemoglobin concentration [Mass/volume] (test code = 48838-6) 30.9 G/DL 32.5-36.5 L Erythrocyte distribution wid th [Ratio] (test code = 35679-4) 15.2 % 11.5-14.5 H Platelets panel - Blood by Automated count (test code = 70252-6) 254 K/UL 150.0-450.0 N Platelet mean volume [Entiti c volume] in Blood by Automated count (test code = 53840-0) 9.8 FL 7.4-10.4 N CBC W Reflex Manual Differen tial panel - Blood (test code = 69148-2) NO N [employer] review of resul ts (test code = 34490-6) NO N Neutrophils.segmented/100 leukocytes in Blood (test code = 95064-4) 48.3 % 40.0-75.0 N Lymphocytes Variant/100 leuk ocytes in Blood (test code = 75187-2) 39.0 % 24.0-44.0 N Lymphocytes+Monocytes/100 leukocytes in Blood (test code = 4662-3) 8.7 % 0.0-13.0 N Eosinophils [#/volume] in Bl ood (test code = 50532-0) 2.9 % 0.0-4.0 N Basophils [#/volume] in Bloo d (test code = 09127-8) 0.9 % 0.0-2.0 N IG (test code = IG) 0 % 0.0-1.0 N IG% (test code = IG%) 0.2 % 0.0-1.0 N NRBC% (test code = NRBC%) 0 /100 WBC N Neutrophils [#/volume] in Bl ood (test code = 38163-7) 2.8 K/UL 1.2-7.2 N [facility])LUPUS ANTICOAG [id number] 08:59:00* Test Item Value Reference Range Interpretation Comme nts Lupus anticoagulant neutrali zation high phospholipid [Time] in Platelet poor plasma by Coagulation assay (test code = 3283-9) 41.8 sec 0.0-51.9 N Dilute Juan viper venom t merna (dRVVT) in Platelet poor plasma by Coagulation assay (test code = 6303-2) 67.4 sec 0.0-47.0 H Dilute Juan viper venom t merna (dRVVT) factor substitution in Platelet poor plasma by Coagulation assay --immediately after 1:2 addition of normal plasma (test code = 76483-5) 51.5 sec 0.0-40.4 H Dilute Juan viper venom t merna (dRVVT)/Coagulation dilute Juan viper venom induced.excess phospholipid [Ratio] in Platelet poor plasma by Coagulation assay (test code = 76392-7) 1.0 ratio 0.8-1.2 N Lupus anticoagulant [interpretation] in Platelet poor plasma (test code = 3281-3) Comment: N [facility] ([place])CARDIOLIPIN ABS IGG IGM [id number] 08:59:00* Test Item Value Reference Range Interpretation Comme nts ANTICARDIOLIPIN AB, IGG (sebastian t code = CARDIGG) <9 0-14 N ANTICARDIOLIPIN AB, IGM (sebastian t code = CARDIGM) 35 MPL U/mL 0-12 H ANTICARDILIPIN, IGA (test co de = CARDIGA) 13 APL U/mL 0-11 H [facility])PROTHROMBIN BY [id number] 19:08:00* Test Item Value Reference Range Interpretation Comme nts FACTOR II, DNA ANALYSIS (test code = PTBYPCR) Negative No mutation iden tified. Comment: A point mutation ([id number]) in the Factor II (prothrombin) gene is the second most common cause of inherited thrombosis and accounts for up to 20% of inherited thrombophilia. The incidence of this mutation in the population is 1-2% and in Americans it is 0.1%. Heterozygous carriers of this mutation have prothrombin levels that are 30% higher than normal, associated with a 3-fold increase for venous thrombosis, but the risk cannot be definitely quantified at this time due to limited data. The Factor II/prothrombin mutation has been reported in patients with idiopathic portal vein thrombosis, in patients with cerebral vein thrombosis, in patients using oral contraceptives, and in patients with placental abruptions and growth restrictions. Another common cause of thrombosis is the Factor V Leiden mutation (R506Q). Up to 40% of the Factor II/prothrombin mutation carriers also carry the Factor Leiden mutation. Testing for other known causes of thrombophilia may also be pursued. These include the R506Q (Leiden) mutation in the Factor V gene, plasma homocysteine levels, as well as testing for deficiencies of antithrombin III, protein C and protein S. Methodology: DNA analysis of the Factor II gene was performed by PCR amplification followed by restriction analysis. The diagnostic sensitivity is >99% for both. All the tests must be combined with clinical information for the most accurate interpretation. Molecular-based testing is highly accurate, but as in any laboratory test, diagnostic errors may occur. This test was developed and its performance characteristics determined by [facility]. It has not been cleared or approved by the Food and Drug Administration. Poort SR, et al. Blood. 1996; 88:2816-5994. Carter EA. Circulation. 2004; 110:e15-e18. Marek I, et al. Arterioscler Thromb Vasc Biol. 1999; 19:700-703. Alexandra Garcia MS, PhD, [facility] Roberto Rodriguez, PhD Performed at: [facility] [address] [id number] Military Communications Specialist: Melvin Carmona MD, Phone: [phone] FACTOR V LEIDEN /[id number] 19:08:00* Test Item Value Reference Range Interpretation Comme nts FACTOR V LEIDEN MUTATION (test code = [id number]) Comment . Result: Negati ve (no mutation found) Factor V Leiden is a specific mutation (R506Q) in the factor V gene that is associated with an increased risk of venous thrombosis. Factor V Leiden is more resistant to inactivation by activated protein C. As a result, factor V persists in the circulation leading to a mild hypercoagulable state. The Leiden mutation accounts for 90% - 95% of APC resistance. Factor V Leiden has been reported in patients with deep vein thrombosis, pulmonary embolus, central retinal vein occlusion, cerebral sinus thrombosis and hepatic vein thrombosis. Other risk factors to be considered in the workup for venous thrombosis include the [id number] mutation in the factor II (prothrombin) gene, protein S and C deficiency, and antithrombin deficiencies. Anticardiolipin antibody and lupus anticoagulant analysis may be appropriate for certain patients, as well as homocysteine levels. Contact your local [facility] for information on how to order additional testing if desired. Methodology: DNA analysis of the Factor V gene was performed by allele-specific PCR. The diagnostic sensitivity and specificity is >99% for both. Molecular-based testing is highly accurate, but as in any laboratory test, diagnostic errors may occur. All test results must be combined with clinical information for the most accurate interpretation. This test was developed and its performance characteristics determined by [facility]. It has not been cleared or approved by the Food and Drug Administration. References: Sharona Muñoz (1995). Clin Lab Med 16:169-186. Alexandra Garcia MS, PhD, [facility] Roberto Rodriguez, PhD Performed at: [facility] [address] [place] [id number] [employer] Specialist: Melvin Carmona MD, Phone: [phone] F2 gene mutations tested for in Blood or [id number] 09:53:[facility], [place] [facility] [place].2021-11-06 08:17:00* Test Item Value Reference Range Interpretation Comme nts REFTEST (test code = REFTEST) SEE COMMENTS [place] [address] RESULTS FAXED TO [facility] 11/06/21 [facility] SEE COMPLETE RESULTS UNDER SEPARATE COVER SHEET (RESULTS AVAILABLE UNDER SEPARATE COVER) Reference lab test [Identifier]2021-11-06 08:17:00* Test Item Value Reference Range Interpretation Comme nts Reference lab test [Identifi er] (test code = 55782-9) SEE COMMENTS [facility] ([place])PROTEIN C, [id number] 15:09:00* Test Item Value Reference Range Interpretation Comme nts PROTEIN C ANTIGEN (test code = PROTCT) 67 % 60-150 Performed at: [facility] [place] [address] [id number] [employer] Specialist: Fady Bautista MD, Phone: [phone] PROTEIN C [id number] 09:53:00* Test Item Value Reference Range Interpretation Comme [facility] PROTEIN C ANTIGEN (test code = PROTCT) 67 % 60-150 [facility])CARDIOLIPIN ABS, IGG, IGM, [id number] 02:07:00* Test Item Value Reference Range Interpretation Comme nts ANTICARDIOLIPIN AB, IGG (test code = CARDIGG) <9 GPL U/mL 0-14 Negative: <15 Indeterminate: 15 - 20 Low-Med Positive: >20 - 80 High Positive: >80 ANTICARDIOLIPIN AB, IGM (test code = CARDIGM) 21 MPL U/mL 0-12 H Negative: <13 Indeterminate: 13 - 20 Low-Med Positive: >20 - 80 High Positive: >80 ANTICARDILIPIN, IGA (test code = CARDIGA) 10 APL U/mL 0-11 Negative: <12 Indeterminate: 12 - 20 Low-Med Positive: >20 - 80 High Positive: >80 Performed at: [facility] [place] [address] [place] [address], [place], [place] [id number] [employer] Specialist: Fady Bautista MD, Phone: [phone] B2 GLYCOPROTEIN 1 [id number] 01:06:00* Test Item Value Reference Range Interpretation Comme nts B2 GLYCO AB IGA (test code = [id number]) <9 GPI IgA units 0-25 . The reference inte rval reflects a 3SD or 99th percentile interval, which is thought to represent a potentially clinically significant result in accordance with the International Consensus Statement on the classification criteria for definitive antiphospholipid syndrome (APS). J Thromb Haem 2006;4:295-306. G7LCQLUQ (test code = X4UDLORM) <9 GPI IgG units 0-20 . The reference inte rval reflects a 3SD or 99th percentile interval, which is thought to represent a potentially clinically significant result in accordance with the International Consensus Statement on the classification criteria for definitive antiphospholipid syndrome (APS). J Thromb Haem 2006;4:295-306. F9KKEZAK (test code = V6ILGPQN) <9 GPI IgM units 0-32 . The reference inte rval reflects a 3SD or 99th percentile interval, which is thought to represent a potentially clinically significant result in accordance with the International Consensus Statement on the classification criteria for definitive antiphospholipid syndrome (APS). J Thromb Haem 2006;4:295-306. Performed at: [facility] [address] [id number] Military Communications Specialist: Fady Bautista MD, Phone: [phone] LUPUS ANTICOAG [id number] 18:08:00* Test Item Value Reference Range Interpretation Comme nts PTT LUPUS ANTICOAGULATION (test code = PTTLA) 40.6 sec 0.0-51.9 DILUTE JUAN VIPER VENTOM (test code = DRVVT) 96.6 sec 0.0-47.0 H INTERPRETATION (test code = LAINTERP) Comment: Results are con sistent with the presence of a lupus anticoag ulant. As only persistent lupus anticoagulant (LA) positivity meets laborat ory diagnostic criteria for antiphospholipid syndrome, repeat testing in 12 or more weeks is recommended, ideally in the absence of anticoagulant ther apy. Important Note: The results of LA testing are not valid for patients receiving heparin, direct Xa inhibitor (e.g., rivaroxaban, a pixaban) or direct thrombin inhibitor (e.g., dabigatran) therapy. These drugs may cause false positive LA results but will not interfere with antica rdiolipin and beta-2 glycoprotein 1 antibody testing. Performed at: [facility] [address] [id number] Military [employer] Specialist: Fady Bautista MD, Phone: [phone] Performed at: [facility] [id number] Military Communications Specialist: Rober Jain MD, Phone: [phone] DRVVT MIX (test code = DRVVTMX) 52.7 sec 0.0-40.4 H Performed at: [facility] [place] [address], [place], [place] [id number] Military Communications Specialist: Fady Bautista MD, Phone: [phone] DRVVT CONFIRM (test code = DRVVTC) 1.3 ratio 0.8-1.2 H Performed at: [facility] [place] [address], [place], [place] [id number] [employer] Specialist: Fady Bautista MD, Phone: [phone] PROTEIN S FUNCTIONAL CLOT [id number] 21:07:00* Test Item Value Reference Range Interpretation Comme nts PROTEIN S-FUNCTIONAL (test code = PROTS) 41 % 63-140 L A deficiency of protein S (PS), either congenital or acquired, increases the risk of thromboembolism. PS activity levels may be falsely low in individuals with APCR/Factor V Leiden. Consider performing free protein S antigen in those with APCR/Factor V Leiden before making a diagnosis of protein S deficiency. Acquired PS deficiency is more common than congenital deficiency. PS values decrease with normal , and are also dependent on age, sex and hormone status. PS values tend to be lower in a younger age group and lower in women than in men. Levels may be decreased in pre-menopausal women on oral contraceptive agents. Acquired deficiency can occur as a result of vitamin K deficiency or antagonism, severe hepatic disorders, (hepatitis, cirrhosis, etc.), nephrotic syndrome, inflammatory bowel disease, certain chemotherapeutic agents, L-asparaginse therapy, sepsis, disseminated intravascular coagulation (DIC) and acute thrombosis. Levels may be decreased in patients with polycythemia vera, sickle cell disease and essential thrombocythemia. Repeat evaluation on a new plasma sample to confirm or refute this result should be considered, after ruling out acquired causes, depending on the clinical scenario. Performed at: [facility] [employer] [facility] [place] [address], [place], [place] [id number] Military Communications Specialist: Fady Bautista MD, Phone: [phone] ANTITHROMBIN, [id number] 21:07:00* Test Item Value Reference Range Interpretation Comme nts AT3ENZ (test code = AT3ENZ) 102 % 75-135 Direct Xa inhibitor anticoagulants such as rivaroxaban, apixaban and edoxaban will lead to spuriously elevated antithrombin activity levels possibly masking a deficiency. Performed at: [facility] [employer] [facility] [place] [address] [id number] Military Communications Specialist: Fady Bautista MD, Phone: [phone] C [id number] 20:08:00* Test Item Value Reference Range Interpretation Comme nts PROTEIN C-FUNCTIONAL (test c ode = PROTC) 99 % 73-180 Performed at: [facility] [place] [address], [place], [place] [id number] Military Communications Specialist: Fady Bautista MD, Phone: [phone] S/Coagulation factor IX [Mass Ratio] [id number] 09:55:00* Test Item Value Reference Range Interpretation Comme nts Protein S/Coagulation factor IX [Mass Ratio] in Platelet poor plasma by Coagulation assay (test code = 17836-2) 41 % 63.0-140.0 [facility])Antithrombin [Units/volume] in Platelet poor pl 2021-11-02 09:53:00* Test Item Value Reference Range Interpretation Comme nts Antithrombin [Units/volume] in Platelet poor plasma by Chromogenic method (test code = 3174-0) 102 % 75.0-135.0 [facility])Protein C actual/normal in Platelet poor plasma 2021-11-02 09:53:00* Test Item Value Reference Range Interpretation Comme nts Protein C actual/normal in P latelet poor plasma by Coagulation assay (test code = 57959-1) 99 % 73.0-180.0 [facility])FACTOR VIII, [id number] 17:09:00* Test Item Value Reference Range Interpretation Comme nts FACTOR VIII ACTIVITY (test code = FACTOR8) 216 % 56-140 H FVIII acti vity can increase in a variety of clinical situations including normal , in samples drawn from patients (particularly children) who are visibly stressed at the time of phlebotomy, as acute phase reactants, or in response to certain drug therapies such as DDAVP. Persistently elevated FVIII activity is a risk factor for venous thrombosis as well as recurrence of venous thrombosis. Risk is graded and increases with the degree of elevation. Although elevated FVIII activity has been identified to cluster within families, a genetic basis for the elevation has not yet been elucidated (Br J Haematol. 2012; 157:653-663). Performed at: [facility] [employer] [address] [address] [address] [id number] Military Communications Specialist: Fady Bautista MD, Phone: [phone] Coagulation factor VIII activity actual/[id number] 09:53:00* Test Item Value Reference Range Interpretation Comme [facility] Coagulation factor VIII acti vity actual/normal in Platelet poor plasma by Coagulation assay (test code = 3209-4) 216 % 56.0-140.0 H [facility])HOMOCYSTEINE, [id number] 11:11:00* Test Item Value Reference Range Interpretation Comme [facility] HOMOCYSTEINE, PLASMA (test code = HOMO-S) 16.7 umol/L 0.0-19.2 Performed at: [facility] [address] [id number] Military Communications Specialist: Les Silvestre MD, Phone: [phone] Homocysteine [Presence] in Serum or [id number] 09:53:00* Test Item Value Reference Range Interpretation Comme [facility] Homocysteine [Presence] in S tarun or Plasma (test code = 59904-7) 16.7 umol/L 0.0-19.2 N [facility])VITAMIN D [id number] 14:40:00* Test Item Value Reference Range Interpretation Comme [facility] VITAMIN D, 25-HYDROXY (test code = VITD,25) 54.8 Vitamin D guideline has been defined by the [place] of [employer] and Endocrine Society practice as followed: Deficient: less than 20 ng/mL Insufficient: 21-29 ng/mL Sufficient: 30-100 ng/mL Potential Toxicity: >100ng/mL 5-vqr-28-Hydroxyvitamin D3/25-hydroxyvitamin D.2021-10-30 14:40:00* Test Item Value Reference Range Interpretation Comme nts 4-pmc-40-Hydroxyvitamin D3/25-hydroxyvitamin D.total in Serum or Plasma (test code = 63323-9) 54.8 1 [address] [facility])[id number] 14:35:00* Test Item Value Reference Range Interpretation Comme nts WBC (test code = WBC) 5.8 K/UL 3.5-10.9 RBC (test code = RBC) 4.67 M/UL 4.0-5.0 HGB (test code = HGB) 12.3 G/DL 11.5-15.5 HCT (test code = HCT) 39.5 % 34-46 MCV (test code = MCV) 84.6 FL 80-98 MCH (test code = MCH) 26.3 PG 28-32 L MCHC (test code = MCHC) 31.1 G/DL 32.5-36.5 L RDW (test code = RDW) 15.5 % 11.5-14.5 H PLT (test code = PLT) 259 K/UL 150-450 MPV (test code = MPV) 10.3 FL 7.4-10.4 MANDIFF (test code = MANDIFF) NO SCAN (test code = SCAN) NO NEUT% (test code = NEUT%) 59.5 % 40-75 LYMPH% (test code = LYMPH%) 30.1 % 24-44 MONO% (test code = MONO%) 6.5 % 0-13 EOS% (test code = EOS%) 2.9 % 0-4 BASO % (test code = BASO%) 0.5 % 0-2 IG (test code = IG) 0 % 0-1 IG% (test code = IG%) 0.5 % 0-1 IG% = Metamyeloc ytes, Myelocytes, and Promyelocytes. (Immature neutrophils not including "bands".) > 3% IG indicates risk of sepsis NRBC% (test code = NRBC%) 0 /100 WBC ABS NEUT (test code = NEUT) 3.5 K/UL 1.2-7.2 CBC W Auto Differential panel - [id number] 14:35:00* Test Item Value Reference Range Interpretation Comme nts Leukocytes other [Identifier ] in Blood by Automated count (test code = 85705-1) 5.8 K/UL 3.5-10.9 N Erythrocytes [#/volume] in B lood (test code = 75360-6) 4.67 M/UL 4.0-5.0 N Hemoglobin A/Hemoglobin.tota l in Blood (test code = 4546-8) 12.3 G/DL 11.5-15.5 N Hematocrit [Volume Fraction] of Blood (test code = 10833-2) 39.5 % 34.0-46.0 N Erythrocyte mean corpuscular volume [Entitic volume] (test code = 24982-7) 84.6 FL 80.0-98.0 N Erythrocyte mean corpuscular hemoglobin [Entitic mass] (test code = 56275-9) 26.3 PG 28.0-32.0 L Erythrocyte mean corpuscular hemoglobin concentration [Mass/volume] (test code = 50852-9) 31.1 G/DL 32.5-36.5 L Erythrocyte distribution wid th [Ratio] (test code = 00355-8) 15.5 % 11.5-14.5 H Platelets panel - Blood by Automated count (test code = 50996-4) 259 K/UL 150.0-450.0 N Platelet mean volume [Entiti c volume] in Blood by Automated count (test code = 67191-3) 10.3 FL 7.4-10.4 N CBC W Reflex Manual Differen tial panel - Blood (test code = 38517-0) NO N [employer] review of resul ts (test code = 93272-7) NO N Neutrophils.segmented/100 leukocytes in Blood (test code = 12494-3) 59.5 % 40.0-75.0 N Lymphocytes Variant/100 leuk ocytes in Blood (test code = 70789-4) 30.1 % 24.0-44.0 N Lymphocytes+Monocytes/100 leukocytes in Blood (test code = 4662-3) 6.5 % 0.0-13.0 N Eosinophils [#/volume] in Bl ood (test code = 39398-1) 2.9 % 0.0-4.0 N Basophils [#/volume] in Bloo d (test code = 18994-3) 0.5 % 0.0-2.0 N IG (test code = IG) 0 % 0.0-1.0 N IG% (test code = IG%) 0.5 % 0.0-1.0 N NRBC% (test code = NRBC%) 0 /100 WBC N Neutrophils [#/volume] in Bl ood (test code = 29117-8) 3.5 K/UL 1.2-7.2 N [facility][id number] 14:23:00* Test Item Value Reference Range Interpretation Comme nts SODIUM (test code = NA) 138 MMOL/L 137-145 K+ (test code = KSERUM) 3.7 MMOL/L 3.5-5.1 CHLORIDE (test code = CL) 104 MMOL/L 98-107 CO2 (test code = CO2) 26 MMOL/L 22-30 BUN (test code = BUN) 25 MG/DL 7-17 H CREA (test code = CREA) 1.4 MG/DL 0.7-1.2 H GLUCOSE (test code = GLUCOSE) 170 MG/DL 70-99 H Fasting glucos e normal <100 MG/DL- [place] [employer] recommendation CALCIUM (test code = CABLOOD) 8.5 MG/DL 8.4-10.2 TOTPROT (test code = TOTPROT) 7.5 G/DL 6.3-8.2 ALBUMIN (test code = ALBSERUM) 3.3 G/DL 3.5-5.0 L BILITOT (test code = BILITOT) 0.5 MG/DL 0.2-1.3 AST (test code = AST) 25 U/L 15-46 PHOSALK (test code = PHOSALK) 97 U/L 38-126 ALTV (test code = ALTV) 14 U/L 13-69 GFR (test code = GFR) 39 mL/min/1.73m2 A GFR of >90 mL/min/1.73m2 is considered normal. The GFR calculation on patients over 70 years of age is not validated by the dog groomer and may not represent the patients true renal function. Comprehensive metabolic 2000 panel - Serum or [id number] 14:23:00* Test Item Value Reference Range Interpretation Comme nts Sodium [Moles/volume] in Blood (test code = 2947-0) 138 MMOL/L 137.0-145.0 N Potassium [Moles/volume] in Blood (test code = 6298-4) 3.7 MMOL/L 3.5-5.1 N Chloride [Moles/volume] in Blood (test code = 2069-3) 104 MMOL/L 98.0-107.0 N Carbon dioxide, total [Moles/volume] in Blood (test code = 14942-6) 26 MMOL/L 22.0-30.0 N Urea nitrogen [Mass/volume] in Serum or Plasma (test code = 3094-0) 25 MG/DL 7.0-17.0 H Creatinine [Mass/volume] in Blood (test code = 52352-2) 1.4 MG/DL 0.7-1.2 H Glucose [Mass/volume] in Blood (test code = 2339-0) 170 MG/DL 70.0-99.0 H Calcium [Mass/volume] in Serum or Plasma (test code = 83241-3) 8.5 MG/DL 8.4-10.2 N Protein [Mass/volume] in Serum or Plasma (test code = 2885-2) 7.5 G/DL 6.3-8.2 N Albumin [Presence] in Serum or Plasma (test code = 22737-5) 3.3 G/DL 3.5-5.0 L Bilirubin direct and total panel [Mass/volume] - Serum or Plasma (test code = 03660-1) 0.5 MG/DL 0.2-1.3 N Aspartate aminotransferase [Enzymatic activity/volume] in Serum or Plasma (test code = 1920-8) 25 U/L 15.0-46.0 N Alkaline phosphatase [Enzymatic activity/volume] in Serum or Plasma (test code = 6768-6) 97 U/L 38.0-126.0 N ALTV (test code = ALTV) 14 U/L 13.0-69.0 N Estimated or measured glomerular filtration rate less than 50 percent [- Reported] (test code = 69711-5) 39 mL/min/1.73m2 N [facility])Antithrombin in Platelet poor [id number] 09:53:00* Test Item Value Reference Range Interpretation Comme nts Antithrombin Ag [Units/volum e] in Platelet poor plasma by Immunologic method (test code = 3175-7) 111 % 72.0-124.0 N [facility]Beta 2 glycoprotein 1 Ab [Units/volume] in Seru 2021-10-30 09:53:00* Test Item Value Reference Range Interpretation Comme nts B2 GLYCO AB IGA (test code = G1VTKRER) <9 0-25 N V1HMPFJN (test code = H1OQLWSV) <9 0-20 N Z2JWYHMU (test code = K2KMUHLU) <9 0-32 N [facility]CARDIOLIPIN ABS IGG IGM [id number] 09:53:00* Test Item Value Reference Range Interpretation Comme nts ANTICARDIOLIPIN AB, IGG (sebastian t code = CARDIGG) <9 0-14 N ANTICARDIOLIPIN AB, IGM (sebastian t code = CARDIGM) 21 MPL U/mL 0-12 H ANTICARDILIPIN, IGA (test co de = CARDIGA) 10 APL U/mL 0-11 N [facility])LUPUS ANTICOAG [id number] 09:53:00* Test Item Value Reference Range Interpretation Comme nts Lupus anticoagulant neutrali zation high phospholipid [Time] in Platelet poor plasma by Coagulation assay (test code = 3283-9) 40.6 sec 0.0-51.9 N Dilute Juan viper venom t merna (dRVVT) in Platelet poor plasma by Coagulation assay (test code = 6303-2) 96.6 sec 0.0-47.0 H Dilute Juan viper venom t merna (dRVVT) factor substitution in Platelet poor plasma by Coagulation assay --immediately after 1:2 addition of normal plasma (test code = 17415-9) 52.7 sec 0.0-40.4 H Dilute Juan viper venom t merna (dRVVT)/Coagulation dilute Juan viper venom induced.excess phospholipid [Ratio] in Platelet poor plasma by Coagulation assay (test code = 03309-4) 1.3 ratio 0.8-1.2 H Lupus anticoagulant [interpretation] in Platelet poor plasma (test code = 3281-3) Comment: [facility])F5 gene mutations tested for in Blood or Tissue 2021-10-30 09:53:00* Test Item Value Reference Range Interpretation Comme [facility] FACTOR V LEIDEN MUTATION (te st code = YAH7CXL) Comment [facility])Capillary whole blood glucose measurement by glucometer (mass/volume)2021-08-02 10:54:00* Test Item Value Reference Range Interpretation Comme [facility] Bedside Glucose (test code = 47449-8) 416 60-100 [facility] blood leukocyte count (number/volume)2021-08-02 07:21:00* Test Item Value Reference Range Interpretation Comme [facility] White Blood Count (test code = 6690-2) 8.1 4.5-11.5 [facility] erythrocytes automated count (number/volume)2021-08-02 07:21:00* Test Item Value Reference Range Interpretation Comme [facility] Red Blood Count (test code = 789-8) 4.65 3.8-5.1 [facility] hemoglobin measurement (mass/volume)2021-08-02 07:21:00* Test Item Value Reference Range Interpretation Comme [facility] Hemoglobin (test code = 718-7) 12.0 12.0-15.2 [facility] Health[facility]ated blood hematocrit (volume fraction)2021-08-02 07:21:00* Test Item Value Reference Range Interpretation Comme [facility] Hematocrit (test code = 4544-3) 37.5 34.0-45.5 [facility] HealthAutomated erythrocyte mean corpuscular volume (MCV) measurement 2021-08-02 07:21:00* Test Item Value Reference Range Interpretation Comme [facility] Mean Corpuscular Volume (sebastian t code = 787-2) 81 80-94 [facility] erythrocyte mean corpuscular hemoglobin (mass per erythrocyte)2021-08-02 07:21:00* Test Item Value Reference Range Interpretation Comme [facility] Mean Corpuscular Hemoglobin (test code = 785-6) 25.8 27.0-33.0 [facility] erythrocyte mean corpuscular hemoglobin concentration measurement (mass/volume)2021-08-02 07:21:00* Test Item Value Reference Range Interpretation Comme [facility] Mean Corpuscular Hemoglobin Concent (test code = 786-4) 32.0 33.0-37.0 [facility] HealthAutomated erythrocyte distribution width [id number] 07:21:00 * Test Item Value Reference Range Interpretation Comme [facility] Red Cell Distribution Width (test code = 788-0) 14.4 10.7-14.5 [facility] HealthAutomated blood platelet count (count/volume)2021-08-02 07:21:00 * Test Item Value Reference Range Interpretation Comme [facility] Platelet Count (test code = 777-3) 220 150-450 [facility] HealthAutomated blood platelet mean volume minxxgzaoju0742-24-14 07:21:00* Test Item Value Reference Range Interpretation Comme [facility] Mean Platelet Volume (test c ode = 09692-8) 10.1 5.7-10.7 [facility] DdiSj-tUpz3954-10-07 07:21:00* Test Item Value Reference Range Interpretation Comme [facility] Troponin I (test code = 84350-0) 0.01 0.00-0.03 [facility] blood cardiac troponin I measurement (mass/volume) 2021-08-01 12:07:00* Test Item Value Reference Range Interpretation Comme [facility] Bedside Troponin I (test cod e = 67585-2) 0.02 0.00-0.06 [facility] HealthDetermination of inhaled oxygen concentration (volume fraction) 2021-08-01 12:05:00* Test Item Value Reference Range Interpretation Comme [facility] FiO2 (test code = 3150-0) 21 [facility] whole blood pH kpvehbozdhp9955-27-04 12:05:00* Test Item Value Reference Range Interpretation Comme [facility] Venous Blood pH (test code = 2746-6) 7.374 7.300-7.40 0 [facility] blood partial pressure of carbon dioxide measurement 2021-08-01 12:05:00* Test Item Value Reference Range Interpretation Comme [facility] Blood Gas PCO2 (test code = 2021-4) 48.1 42.0-48.0 [facility] blood partial pressure of oxygen mtfjxzhvwba7584-35-02 12:05:00* Test Item Value Reference Range Interpretation Comme [facility] Blood Gas PO2 (test code = 2705-2) 25.5 35.0-45.0 [facility] blood bicarbonate measurement (moles/volume)2021-08-01 12:05:00* Test Item Value Reference Range Interpretation Comme [facility] Venous Blood HCO3 (test code = 57056-6) 27.4 24.0-30 .0 [facility] whole blood base excess determination by calculation (moles/volume)2021-08-01 12:05:00* Test Item Value Reference Range Interpretation Comme [facility] Venous Blood Base Excess (te st code = 1927-3) 1.6 -2.0-2.0 [facility] hemoglobin measurement by oximetry (mass/volume)2021-08-01 12:05:00* Test Item Value Reference Range Interpretation Comme [facility] Venous Blood Hemoglobin (sebastian t code = 51219-7) 13.0 See Comment [facility] HealthVenous blood oxygen saturation (mass fraction)2021-08-01 12:05:00 * Test Item Value Reference Range Interpretation Comme [facility] Venous Blood Oxygen Saturati on (test code = 2711-0) 43.7 70.0-75.0 [facility] blood carboxyhemoglobin/total hemoglobin [id number] 12:05:00* Test Item Value Reference Range Interpretation Comme [facility] Venous Blood Carboxyhemoglob in (test code = 2032-1) 0.4 <3.0 [facility] whole blood methemoglobin/total hemoglobin (mass fraction) 2021-08-01 12:05:00* Test Item Value Reference Range Interpretation Comme [facility] Venous Blood Methemoglobin ( test code = 2617-9) 0.3 <3.0 [facility] blood deoxyhemoglobin/total hemoglobin mass ratio 2021-08-01 12:05:00* Test Item Value Reference Range Interpretation Comme [facility] Reduced Hemoglobin (test cod e = 38693-5) 55.9 <25.0 [facility] HealthVenous blood oxygen content by zjfiszcxnro7198-81-74 12:05:00* Test Item Value Reference Range Interpretation Comme [facility] Venous Blood Oxygen Content (test code = 94997-6) 7.9 16.0-22.0 [facility] HealthGas deliv source Slhdhxfztld8957-12-88 12:05:00* Test Item Value Reference Range Interpretation Comme [facility] Oxygen Delivery Device (test code = 54655-1) ROOM AIR [facility] HealthSpecimen drawn from Ldqpumt3667-31-87 12:05:00* Test Item Value Reference Range Interpretation Comme nts Blood Gas Puncture Site (sebastian t code = 47651-5) Venous [facility] HealthAssessment of wrist artery patency prior to arterial puncture 2021-08-01 12:05:00* Test Item Value Reference Range Interpretation Comme nts Alexandru Test (test code = 76594-4) Not Applicable [facility] HealthArterial blood oxygen saturation measurement by pulse oximetry 2021-08-01 12:05:00* Test Item Value Reference Range Interpretation Comme nts Oxygen Saturation (Pulse Oxi metry) (test code = 72594-7) 96 [facility] HealthResp [id number] 12:05:00* Test Item Value Reference Range Interpretation Comme nts Blood Gas Respiration Rate ( test code = 9279-1) 21 [facility] HealthService Cmnt 03 WUE-Fhq6482-75-06 12:05:00* Test Item Value Reference Range Interpretation Comme nts Blood Gas Critical Value Damon led To (test code = 8264-4) DR CASEMENT [facility] TGE-[id number] 12:05:00* Test Item Value Reference Range Interpretation Comme nts Blood Gas Notified Time (sebastian t code = 8265-1) [id number] [facility] HealthAutomated blood neutrophil count as percentage of total uaghkjbhhe6903-31-64 11:34:00* Test Item Value Reference Range Interpretation Comme nts Neutrophils (%) (Auto) (test code = 770-8) 63 47-75 [facility] HealthAutomated blood immature granulocyte count as percentage of total xkkuwvanuz1888-67-54 11:34:00* Test Item Value Reference Range Interpretation Comme nts Immature Granulocyte % (Auto ) (test code = 16568-6) 0 0-0 [facility] HealthAutomated blood lymphocyte count as percentage of total orgspbtspx7372-34-43 11:34:00* Test Item Value Reference Range Interpretation Comme nts Lymphocytes (%) (Auto) (test code = 736-9) 26 25-44 [facility] HealthAutomated blood monocyte count as percentage of total leukocytes 2021-08-01 11:34:00* Test Item Value Reference Range Interpretation Comme nts Monocytes (%) (Auto) (test c ode = 5905-5) 9 3-10 [facility] HealthAutomated blood eosinophil count as percentage of total tqiayhqfya6600-39-28 11:34:00* Test Item Value Reference Range Interpretation Comme nts Eosinophils (%) (Auto) (test code = 713-8) 1 0-7 [facility] HealthAutomated blood basophil count as percentage of total leukocytes 2021-08-01 11:34:00* Test Item Value Reference Range Interpretation Comme nts Basophils (%) (Auto) (test c ode = 706-2) 1 0-1 [facility] HealthAutomated blood nucleated erythrocyte count as percentage of total [id number] 11:34:00* Test Item Value Reference Range Interpretation Comme nts Nucleated Red Blood Cells % (test code = 44104-2) 0.0 0-0.2 [facility] HealthAutomated blood neutrophil count (number/volume)2021-08-01 11:34:00* Test Item Value Reference Range Interpretation Comme nts Neutrophils # (Auto) (test c ode = 751-8) 4.9 1.3-6.7 [facility] HealthAutomated blood lymphocyte count (number/volume)2021-08-01 11:34:00* Test Item Value Reference Range Interpretation Comme nts Lymphocytes # (Auto) (test c ode = 731-0) 2.0 1.4-4.1 [facility] HealthBlood monocytes automated count (number/volume)2021-08-01 11:34:00* Test Item Value Reference Range Interpretation Comme nts Monocytes # (Auto) (test code = 742-7) 0.7 0-1.3 [facility] HealthAutomated blood eosinophil [id number] 11:34:00* Test Item Value Reference Range Interpretation Comme nts Eosinophils # (Auto) (test c ode = 711-2) 0.1 0-0.8 [facility] HealthAutomated blood basophil count (number/volume)2021-08-01 11:34:00 * Test Item Value Reference Range Interpretation Comme nts Basophils # (Auto) (test code = 704-7) 0.0 0-0.1 [facility] HealthAutomated blood nucleated erythrocyte count (count/volume) 2021-08-01 11:34:00* Test Item Value Reference Range Interpretation Comme nts Nucleated Red Blood Cells # (test code = 771-6) 0.00 0-0.01 [facility] comment [id number] 11:34:00* Test Item Value Reference Range Interpretation Comme nts Manual Differential (test co de = 8265-1) Not Ind [facility] HealthProthrombin [id number] 11:34:00* Test Item Value Reference Range Interpretation Comme nts Prothrombin Time (test code = 5902-2) 10.8 9.4-12.5 [facility] HealthINR [id number] 11:34:00* Test Item Value Reference Range Interpretation Comme nts Prothromb Time International Ratio (test code = 6301-6) 1.0 0.8-1.2 [facility] HealthaPTT [id number] 11:34:00* Test Item Value Reference Range Interpretation Comme nts Activated Partial Thrombopla st Time (test code = 96716-0) 26.2 25.1-36.5 [facility] HealthSodium QqrPi-wNvf1921-46-06 11:34:00* Test Item Value Reference Range Interpretation Comme nts Sodium Level (test code = 2951-2) 139 136-145 [facility] HealthSerum or plasma potassium measurement (moles/volume)2021-08-01 11:34:00* Test Item Value Reference Range Interpretation Comme nts Potassium Level (test code = 2823-3) 4.0 3.5-5.1 [facility] HealthSerum or plasma chloride measurement (moles/volume)2021-08-01 11:34:00* Test Item Value Reference Range Interpretation Comme nts Chloride Level (test code = 2075-0) 105 98-107 [facility] HealthSerum or plasma total carbon dioxide measurement (moles/volume) 2021-08-01 11:34:00* Test Item Value Reference Range Interpretation Comme nts Carbon Dioxide Level (test c ode = 2028-03) 27 23-31 [facility] HealthSerum or plasma anion gap determination (moles/volume)2021-08-01 11:34:00* Test Item Value Reference Range Interpretation Comme nts Anion Gap (test code = 11963-9) 11 8-18 [facility] HealthSerum or plasma urea nitrogen measurement (mass/volume)2021-08-01 11:34:00* Test Item Value Reference Range Interpretation Comme nts Blood Urea Nitrogen (test co de = 3094-0) 29 10-20 [facility] HealthSerum or plasma creatinine measurement (mass/volume)2021-08-01 11:34:00* Test Item Value Reference Range Interpretation Comme nts Creatinine (test code = 2160-0) 1.7 0.6-1.1 [facility] HealthGFR/BSA.pred SerPl ZNES-MnUMwa2380-86-06 11:34:00* Test Item Value Reference Range Interpretation Comme nts Estimat Glomerular Filtratio n Rate (test code = 29763-9) 31 50-100 [facility] HealthSerum or plasma glucose measurement (mass/volume)2021-08-01 11:34:00* Test Item Value Reference Range Interpretation Comme nts Glucose Level (test code = 2345-7) 84 60-100 [facility] HealthSerum or plasma calcium measurement (mass/volume)2021-08-01 11:34:00* Test Item Value Reference Range Interpretation Comme nts Calcium Level (test code = 36864-3) 8.9 8.4-10.2 [facility] HealthSerum or plasma total bilirubin measurement (mass/volume) 2021-08-01 11:34:00* Test Item Value Reference Range Interpretation Comme nts Total Bilirubin (test code = 1975-2) 0.7 0.2-1.2 [facility] HealthSerum or plasma total combined glucuronidated bilirubin and albumin bound bilirubin measurement (mass/volume)2021-08-01 11:34:00* Test Item Value Reference Range Interpretation Comme nts Direct Bilirubin (test code = 1968-7) 0.3 0.0-0.5 [facility] HealthSerum or plasma aspartate aminotransferase measurement (enzymatic activity/volume)2021-08-01 11:34:00* Test Item Value Reference Range Interpretation Comme nts Aspartate Amino Transf (AST/ SGOT) (test code = 1920-8) 19 5-34 [facility] HealthSerum or plasma alanine aminotransferase measurement (enzymatic activity/volume)2021-08-01 11:34:00* Test Item Value Reference Range Interpretation Comme nts Alanine Aminotransferase (AL T/SGPT) (test code = 1742-6) 7 0-55 [facility] HealthSerum or plasma protein measurement (mass/volume)2021-08-01 11:34:00* Test Item Value Reference Range Interpretation Comme nts Total Protein (test code = 2885-2) 8.4 5.8-7.6 [facility] HealthSerum or plasma albumin measurement (mass/volume)2021-08-01 11:34:00* Test Item Value Reference Range Interpretation Comme nts Albumin (test code = 1751-7) 2.9 3.2-4.7 [facility] HealthSerum or plasma alkaline phosphatase measurement (enzymatic activity/volume)2021-08-01 11:34:00* Test Item Value Reference Range Interpretation Comme nts Alkaline Phosphatase (test c ode = 6768-6) 91 40-150 [facility] HealthSerum or plasma lipase measurement (enzymatic activity/volume) 2021-08-01 11:34:00* Test Item Value Reference Range Interpretation Comme nts Lipase (test code = 3040-3) 36 8-78 [facility] blood natriuretic peptide B measurement (mass/volume) 2021-08-01 10:36:00* Test Item Value Reference Range Interpretation Comme nts Bedside B-Type Natriuretic P eptide (test code = 02527-6) 526 0-99 [facility] source [id number] 10:20:00* Test Item Value Reference Range Interpretation Comme nts Respiratory Virus Source (test code = 91948-2) Nasopharyngeal Swab [facility]-CoV-2 RNA Resp Ql REY+pjzga0398-03-22 10:20:00* Test Item Value Reference Range Interpretation Comme nts Coronavirus (COVID-19)(PCR) (test code = 44659-6) POSITIVE Negative [facility] patient employed in a healthcare rwtrjei7158-69-40 10:20:00* Test Item Value Reference Range Interpretation Comme nts N/A (test code = 17297-9) No [facility]Patient has symptoms for condition of tnyehykk2483-02-77 10:20:00 * Test Item Value Reference Range Interpretation Comme nts N/A (test code = 36129-2) No [facility] josephryja4738-41-10 10:20:00* Test Item Value Reference Range Interpretation Comme nts N/A (test code = 38825-8) No JARAD BraunPatient resides in congregate care vneuynk4786-19-39 10:20:00* Test Item Value Reference Range Interpretation [facility] N/A (test code = 61106-8) No JARAD BraunBLOOD GAS [id number] 13:50:00* Test Item Value Reference Range Interpretation [facility] (test code = SITE) RR See_Comment [Automated Page Foundrya ge] The system which generated this result transmitted reference range: -SITE. The reference range was not used to interpret this result as normal/abnormal. ALLENS (test code = ALLENS) POS O2 EQUIP (test code = O2 EQUIP) RM AIR O2-DEVICE PH (test code = BGPH) 7.42 7.35-7.45 PCO2 (test code = PCO2) 41 MMHG 34.0-45.0 PO2 (test code = PO2) 88 MMHG 75-83 H HCO3 (test code = HCO3) 26.6 mmol/L 22.0-26.0 H BE (test code = BE) 1.9 mmol/L -2.0-2.0 THB (test code = THB) 12.3 G/DL 12-16 % 02 HB (test code = ABGSAT) 95.6 % 96.0-100.0 L %COHB (test code = BGCO) 2.3 % See_Comment H [Automated messa ge] The system which generated this result transmitted reference range: -1.5. The reference range was not used to interpret this result as normal/abnormal. % MET HB (test code = %MET HB) 0.4 % 0.4-1.5 CAO2 (test code = CAO2) 16.6 VOL% 15.7-21.6 PF/RATIO (test code = PF/RATIO) 419.0 ANTICOAG?: NA LAST DOSE?:BLOOD GAS [id number] 13:50:00* Test Item Value Reference Range Interpretation [facility] SAMPLE SITE: (test code = SITE) RR N ALLENS TEST: (test code = ALLENS) POS N O2 EQUIPMENT: (test code = O2 EQUIP) RM AIR O2 N BLOOD GAS PH (test code = BGPH) 7.42 1 7.35-7.45 N PCO2 (test code = PCO2) 41 MMHG 34.0-45.0 N PO2 (test code = PO2) 88 MMHG 75.0-83.0 H HCO3 (test code = HCO3) 26.6 mmol/L 22.0-26.0 H BE (test code = BE) 1.9 mmol/L See_Comment N [Aut omated message] The system which generated this result transmitted reference range: -2.0. The reference range was not used to interpret this result as normal/abnormal. THB (test code = THB) 12.3 G/DL 12.0-16.0 N ABGSAT (test code = ABGSAT) 95.6 % 96.0-100.0 L CARBON MONOXIDE (test code = BGCO) 2.3 % H %MET HB (test code = %MET HB) 0.4 % 0.4-1.5 N CAO2 (test code = CAO2) 16.6 VOL% 15.7-21.6 N PF/RATIO (test code = PF/RATIO) 419.0 1 N [facility] 1950 Sex: FHEART RATE: 82 bpmRR Interval: 732 msAtrial Rate: 83 msP-R Interval: 152 msP Duration: 85 msP Horizontal [place]: -89 degP Front [place]: 29 degQ Onset: 499 msQRSD Interval: 111 msQT Interval: 414 msQTcB: 484 msQTcF: 459 msQRS Horizontal [place]: -58 degQRS [place]: 6 degI-40 Horizontal [place]: -53 degI-40 Front [place]: 1 degT-40 Horizontal [place]: -53 degT-40 Front [place]: 21 degT Horizontal [place]: 88 degT Wave [place]: 160 degS-T Horizontal [place]: 84 degS-T Front [place]: degECG Severity: - ABNORMAL ECG -ECGImpression: Sinus rhythmECG Impression: Left ventricular hypertrophyECG Impression: Anterior infarct, oldECG Impression: Abnormal T, consider ischemia, lateral [id number] 18:00:00 [facility] : 1950 Sex: FHEART RATE: 82 bpmRR Interval: 732 msAtrial Rate: 82 msP-R Interval: 218 msP Duration: 128 msP Horizontal [place]: 29 degP Front [place]: 69 degQ Onset: 505 msQRSD Interval: 105 msQT Interval: 403 msQTcB: 471 msQTcF: 447 msQRS Horizontal [place]: -51 degQRS [place]: 25 degI-40 Horizontal [place]: -30 degI-40 Front [place]: 14 degT-40 Horizontal [place]: -55 degT-40 Front [place]: 32 degT Horizontal [place]: 97 degT Wave [place]: 256 degS-T Horizontal [place]: 103 degS-T Front [place]: 264 degECG Severity: - ABNORMAL ECG -ECG Impression: Sinus rhythmECG Impression: Borderline prolonged NE intervalECG Impression: Anterior infarct, oldECHO 2D [id number] 14:10:00 [facility] : 1950 [facility]ALECHOCARDIOGRAM REPORTName: CELE ALVARENGA Study Date: 05/24/2021 12:35 PMMRN: [id number] Patient Location: T3\\S\\3317\\S\\A CATHLABDOB: 1950 (M/d/yyyy) Gender: FemaleAge: 70 yrs Ethnicity: THeight: 63 in Weight: 334 lbBSA: 2.4 n5Zrdnow For Study: Eval. EffusionProceduresA two-dimensional limited transthoracic echocardiogram was performed.Left VentricleEjection Fraction = 55%.Pericardium/PleuralSmall pericardial effusion. There are no echocardiographic indications ofcardiac tamponade.Interpretation SummaryTechnically difficult study. Poor imaging windows.Ejection Fraction = 55%.Trivial to small pericardial effusion.There are no echocardiographic indications of cardiac tamponade. Reading Physician: Electronically signed Alexandru Bojorquez MD05/25/2021 02:10by: PMReferring Physician: ALEXANDRU BOJORQUEZPerformed By: Alisa Patiño, CARLOSCS, RVTECHO 2D [id number] 14:09:00 [facility] : 1950 Sex: [facility]OSPITALECHOCARDIOGRAM REPORTName: CELE ALVARENGA Study Date: 05/25/2021 11:04 AMMRN: [id number] Patient Location: T3\\S\\3317\\S\\AHR: 77DOB: 1950 (M/d/yyyy) Gender: FemaleAge: 70 yrs Ethnicity: THeight: 63 in Weight: 334 lbBSA: 2.4 w1Sqrrff For Study: Chest PainProceduresA two-dimensional limited transthoracic echocardiogram was performed.MMode/2D Measurements & CalculationsEDV(MOD-sp4): 61.5 ml SV(MOD-sp4): 34.5 mlESV(MOD-sp4): 27.1 mlEF(MOD-sp4): 56.0 %Left VentricleEjection Fraction = 55%.Pericardium/PleuralSmall pericardial effusion. There are no echocardiographic indications ofcardiac tamponade.Interpretation Summ aryTechnically difficult study. Poor imaging windows.Ejection Fraction = 55%.Trivial to small pericardial effusion.There are no echocardiographic indications of cardiac tamponade. Reading Physician: Electronically signed Alexandru Bojorquez MD 05/25/2021 02:09by: PMOrdering Physician: [place] AReferring Physician: ALEXANDRU BOJORQUEZPerformed By: Leon Dietrich [facility] WHOLE BLOOD [id number] 11:50:00* Test Item Value Reference Range Interpretation Comme nts WHOLE BLOOD GLUCOSE (test code = POC GLU) 312 MG/DL 70-99 Fasting glucose normal <100 MG/DL- [place] [employer] recommendation Glucose mean value [Mass/volume] in Blood [id number] 11:50:00* Test Item Value Reference Range Interpretation Comme nts Glucose mean value [Mass/vol ume] in Blood Estimated from glycated hemoglobin (test code = 59499-1) 312 MG/DL 70.0-99.0 [facility])WHOLE BLOOD [id number] 08:00:00* Test Item Value Reference Range Interpretation Comme [facility] WHOLE BLOOD GLUCOSE (test code = POC GLU) 451 MG/DL 70-99 Fasting glucose normal <100 MG/DL- [employer] [employer] recommendation Glucose mean value [Mass/volume] in Blood Rvlgy8927-28-16 08:00:00* Test Item Value Reference Range Interpretation Comme [facility] Glucose mean value [Mass/vol ume] in Blood Estimated from glycated hemoglobin (test code = 16830-4) 451 MG/DL 70.0-99.0 [facility])[id number] 07:30:00* Test Item Value Reference Range Interpretation Comme nts WBC (test code = WBC) 11.6 K/UL 3.5-10.9 H RBC (test code = RBC) 4.39 M/UL 4.0-5.0 HGB (test code = HGB) 11.3 G/DL 11.5-15.5 L HCT (test code = HCT) 37.5 % 34-46 MCV (test code = MCV) 85.4 FL 80-98 MCH (test code = MCH) 25.7 PG 28-32 L MCHC (test code = MCHC) 30.1 G/DL 32.5-36.5 L RDW (test code = RDW) 14.9 % 11.5-14.5 H PLT (test code = PLT) 272 K/UL 150-450 MPV (test code = MPV) 10.0 FL 7.4-10.4 MANDIFF (test code = MANDIFF) NO SCAN (test code = SCAN) NO NEUT% (test code = NEUT%) 81.3 % 40-75 H LYMPH% (test code = LYMPH%) 11.7 % 24-44 L MONO% (test code = MONO%) 6.6 % 0-13 EOS% (test code = EOS%) 0.0 % 0-4 BASO % (test code = BASO%) 0.1 % 0-2 IG (test code = IG) 0 % 0-1 IG% (test code = IG%) 0.3 % 0-1 IG% = Metamyeloc ytes, Myelocytes, and Promyelocytes. (Immature neutrophils not including "bands".) > 3% IG indicates risk of sepsis NRBC% (test code = NRBC%) 0 /100 WBC ABS NEUT (test code = NEUT) 9.4 K/UL 1.2-7.2 H CBC W Auto Differential panel - [id number] 07:30:00* Test Item Value Reference Range Interpretation Comme nts Leukocytes other [Identifier ] in Blood by Automated count (test code = 02385-5) 11.6 K/UL 3.5-10.9 H Erythrocytes [#/volume] in B lood (test code = 06442-2) 4.39 M/UL 4.0-5.0 N Hemoglobin A/Hemoglobin.tota l in Blood (test code = 4546-8) 11.3 G/DL 11.5-15.5 L Hematocrit [Volume Fraction] of Blood (test code = 34389-4) 37.5 % 34.0-46.0 N Erythrocyte mean corpuscular volume [Entitic volume] (test code = 17116-4) 85.4 FL 80.0-98.0 N Erythrocyte mean corpuscular hemoglobin [Entitic mass] (test code = 04042-6) 25.7 PG 28.0-32.0 L Erythrocyte mean corpuscular hemoglobin concentration [Mass/volume] (test code = 14782-0) 30.1 G/DL 32.5-36.5 L Erythrocyte distribution wid th [Ratio] (test code = 19458-1) 14.9 % 11.5-14.5 H Platelets panel - Blood by Automated count (test code = 11442-8) 272 K/UL 150.0-450.0 N Platelet mean volume [Entiti c volume] in Blood by Automated count (test code = 23282-9) 10.0 FL 7.4-10.4 N CBC W Reflex Manual Differen tial panel - Blood (test code = 06638-8) NO N Underground [employer] Bolter review of resul ts (test code = 45289-3) NO N Neutrophils.segmented/100 leukocytes in Blood (test code = 56146-8) 81.3 % 40.0-75.0 H Lymphocytes Variant/100 leuk ocytes in Blood (test code = 74832-3) 11.7 % 24.0-44.0 L Lymphocytes+Monocytes/100 leukocytes in Blood (test code = 4662-3) 6.6 % 0.0-13.0 N Eosinophils [#/volume] in Bl ood (test code = 28358-0) 0.0 % 0.0-4.0 N Basophils [#/volume] in Bloo d (test code = 41641-9) 0.1 % 0.0-2.0 N IG (test code = IG) 0 % 0.0-1.0 N IG% (test code = IG%) 0.3 % 0.0-1.0 N NRBC% (test code = NRBC%) 0 /100 WBC N Neutrophils [#/volume] in Bl ood (test code = 42451-9) 9.4 K/UL 1.2-7.2 H [facility])WHOLE BLOOD [id number] 21:25:00* Test Item Value Reference Range Interpretation Comme [facility] WHOLE BLOOD GLUCOSE (test code = POC GLU) 433 MG/DL 70-99 H Fasting glucose normal <100 MG/DL- [employer] [employer] recommendation Glucose mean value [Mass/volume] in Blood Lozsl4314-62-73 21:25:00* Test Item Value Reference Range Interpretation Comme [facility] Glucose mean value [Mass/vol ume] in Blood Estimated from glycated hemoglobin (test code = 72448-8) 433 MG/DL 70.0-99.0 H [facility])ISTAT ACTIVATED CLOTTING [id number] 12:40:00* Test Item Value Reference Range Interpretation Comme [facility] ISTATACT (test code = ISTATACT) 290 sec 79-149 H Notified Nurse/M D of results outside of Reference Ranges Activated clotting time in Blood by Raerulumqfx3541-88-49 12:40:00* Test Item Value Reference Range Interpretation Comme [facility] Activated clotting time in B lood by Coagulation assay (test code = 3184-9) 290 sec 79.0-149.0 H [facility])ISTAT ACTIVATED CLOTTING [id number] 12:05:00* Test Item Value Reference Range Interpretation Comme nts ISTATACT (test code = ISTATACT) 301 sec 79-149 H Notified Nurse/M D of results outside of Reference Ranges Activated clotting time in Blood by Qyoyfumvpfz8999-75-42 12:05:00* Test Item Value Reference Range Interpretation Comme nts Activated clotting time in B lood by Coagulation assay (test code = 3184-9) 301 sec 79.0-149.0 H [facility])WHOLE BLOOD [id number] 10:10:00* Test Item Value Reference Range Interpretation Comme [facility] WHOLE BLOOD GLUCOSE (test code = POC GLU) 373 MG/DL 70-99 H Fasting glucose normal <100 MG/DL- [employer] [employer] recommendation Glucose mean value [Mass/volume] in Blood Fmnhx1773-15-46 10:10:00* Test Item Value Reference Range Interpretation Comme [facility] Glucose mean value [Mass/vol ume] in Blood Estimated from glycated hemoglobin (test code = 13673-6) 373 MG/DL 70.0-99.0 H [facility] Notes Date/Time Note Provider Source [facility]2024-03-02 04:36:12 CARE access control officer Role on Team Status Start Date End Date Update d By NO PCP Referring normal September 26, 2023 8:36:41 AM [facility] September 26, 2023 10:34:00 AM [place] [id number] on September 26, 2023 8:36:41 AM [facility] RIOS DELGADO Attending normal September 26, 2023 8:36:41 AM [facility] September 26, 2023 10:34:00 AM [facility] September 26, 2023 8:36:41 AM [facility] RIOS DELGADO Admitting normal September 26, 2023 8:36:41 AM [facility] September 26, 2023 10:34:00 AM [facility] on September 26, 2023 8:36:41 AM [facility] NO PCP PCP normal September 26, 2023 7:08:35 AM [facility] September 26, 2023 10:34:00 AM [facility] [id number] on September 26, 2023 8:36:41 AM [facility]2024-03-02 04:06:[address] [address] DIAGNOSTIC IMAGING REPORT Patient Name: CELE ALVARENGA Date of Service: 09-26-2023 Age: 73 Sex: F Order #: [id number] Room: [facility] : 1950 X-Ray Number: [id number] Hospital Number: [id number] Admitting Physician: DANNY NATION Ordering Physician: DANNY NATION PROCEDURE: US VENO EXT. UNILAT INDICATIONS: please see worksheet EXAM: Right lower Extremity Venous Doppler Comparison: None TECHNIQUE: The common femoral and superficial femoral veins were followed from the level of the inguinal ligament down to the level of the adductor canal. The popliteal vein was imaged to the level of the trifurcation. Proximal calf veins were also visualized. FINDINGS: No intraluminal thrombus is demonstrated in any of the visualized vessels. There is normal compressibility throughout. Venous flow was documented on color-flow imaging and pulsed Doppler with augmentation of flow on calf compression. No sunshine's cyst is present. IMPRESSION: No evidence of deep vein thrombosis in the right lower extremity. This document has been electronically signed by: Debby Bryant MD on 09/26/2023 04:06:02 Legally authenticated by MANNY [place] 2023-09-26 04:06:02JOSE BRYANT 2023-09-26 03:36:[address] [address] DIAGNOSTIC IMAGING REPORT Patient Name: CELE ALVARENGA Date of Service: 09-26-2023 Age: 73 Sex: F Order #: [id number] Room: [facility] : 1950 X-Ray Number: [id number] Hospital Number: [id number] Admitting Physician: DANNY NATION Ordering Physician: DANNY NATION PROCEDURE: SHOULDER INDICATIONS: dX: pain right side of body pt sts: c/o pain to right side of body x 3 weeks and has worsened todayhx: HTN, DM, High cholesterol no hx of surgpsv: roney 3 views right shoulder Comparison: None Findings: No acute fractures or dislocations. Ktjm-rr-bgjvahcq degenerative changes present at the right glenohumeral joint. Zdrg-ao-stmkzlgf degenerative changes are also present at the right acromioclavicular joint. Normal visualized right chest. Impression: 1. No acute fracture or dislocation injury identified at the right shoulder. 2. Qhyu-ef-dgcoeopd degenerative changes at the right glenohumeral and right acromioclavicular joints. This document has been electronically signed by: Pastor Pagan MD on 09/26/2023 03:36:48 Legally authenticated by LATASHA MACKAY 2023-09-26 03:36:48ALHAJI PAGAN 2023-09-26 03:36:07[place], [place] [address] DIAGNOSTIC IMAGING REPORT Patient Name: CELE ALVARENGA Date of Service: 09-26-2023 Age: 73 Sex: F Order #: [id number] Room: [facility] : 1950 X-Ray Number: [id number] Hospital Number: [id number] Admitting Physician: DANNY NATION Ordering Physician: DANNY NATION PROCEDURE: HIP JOINT 2 VIEWS INDICATIONS: dX: pain right side of body pt sts: c/o pain to right side of body x 3 weeks and has worsened todayhx: HTN, DM, High cholesterol no hx of surgpsv: roney 2 views right hip Comparison: None Findings: This examination is mildly limited by overlying soft tissues. No acute fracture or dislocation injury identified. Possible awse-ys-wmporarv degenerative changes of the right hip. No radiopaque foreign body. Impression: 1. Mildly limited right hip radiograph examination. No acute fracture or dislocation injury identified. This document has been electronically signed by: Pastor Pagan MD on 09/26/2023 03:36:07 Legally authenticated by LATASHA MACKAY 2023-09-26 03:36:07ALHAJI PAGAN 2022-03-19 10:36:[address] [place] [address] / Patient Name: CELE ALVARENGA Patient#: [id number] Admission Date: 03/11/2022 Date of : 1950 Age/Gender: 71/F HSSV/RM/BED: OOS/ Admitting Phys: Evelio Shetty MD PROGRESS NOTE DATE: SUBJECTIVE A 71-year-old female being seen as a followup for pulmonary embolism following COVID-19 infection. The plan was to discontinue Eliquis after 3 months of anticoagulation provided. Hypercoagulable workup was negative, but she had a positive lupus anticoagulant back in October 2021, showed negative, but she had a low protein S that we have followed on, currently 39. She is tolerating Eliquis without any complications of bleeding or bruising. REVIEW OF SYMPTOMS Review of all other systems is negative. ALLERGIES TO AMLODIPINE, IODINE. MEDICATIONS Reviewed. PHYSICAL EXAMINATION GENERAL: Alert, oriented. No obvious distress. VITAL SIGNS: Stable. Afebrile. HEENT: Exam negative. NECK: Supple. No masses. CHEST: Clear to auscultation. No rales or rhonchi. CARDIOVASCULAR: S1, S2. Regular rate and rhythm. ABDOMEN: Soft, nontender. Bowel sounds positive. ASSIGNMENT OFFICER: No focal deficits. EXTREMITIES: No edema, cyanosis, or clubbing. SKIN: No rash. LABORATORY DATA Reviewed. ASSESSMENT AND PLAN 1. A 71-year-old very pleasant female who developed pulmonary embolism after coronavirus 2019 infection. She has been on Eliquis, tolerating well. The plan was to discontinue Eliquis after 3 months provided a hypercoagulable workup was negative. Hypercoagulable workup again performed in October showed a positive lupus anticoagulation and low protein S and a positive low-medium IgM anticardiolipin antibody. After discussion with the patient, we will now continue with Eliquis long-term. She does have a negative lupus anticoagulant, but she does have a low protein S at 39, and continues to have elevated IgM anticardiolipin antibody. We will continue with Eliquis long-term. No evidence of recurrent thromboembolism at this time. 2. Hypokalemia. Potassium currently 3.2. She does take 20 mEq potassium daily. At this time, I told her to double up to 40 mEq a day for 7 days. Assessment and plan were formulated in collaboration with Dr. Shetty. Legally authenticated by LEANN FRASER 2022-03-19 11:30:30 DICTATED BY: DARIUS Mcnamara MD TT: 03/19/2022 10:36:24 /LEILA /[id number] Electronically Authenticated by: Evelio Shetty M.D. on 03/19/2022 11:30 AM CDT Legally authenticated by LEANN FRASER 2022-03-19 11:30:30SAURABH MEDEROS 2022-01-29 14:52:51 PATIENT OPEN ORDERS Code System Description Frequency Occurrences Priority Start Date Ordering Physician Updated By PROTST MEDHOST PROTEIN S TOTAL CLOT INHIBITOR ONE TIME 0 Routine January 15, 2022 1:54:00 PM UTC LEANN DOLL on January 15, 2022 4:18:00 PM UTC SCHEDULED PROCEDURES Code System Description Status Scheduled Date Updated By Patient scheduled procedure information is not available. [facility]2022-07-05 10:54:32 PATIENT OPEN ORDERS Code System Description Frequency Occurrences Priority Start Date Ordering Physician Updated By PROTST MEDHOST PROTEIN S TOTAL CLOT INHIBITOR ONE TIME 0 Routine January 15, 2022 1:54:00 PM UTC LEANN [id number] on January 15, 2022 4:18:00 PM UTC SCHEDULED PROCEDURES Code System Description Status Scheduled Date Updated By Patient scheduled procedure information is not available. [facility]2022-06-29 09:52:26 [facility] [address] [address] / Patient Name: CELE ALVARENGA Patient#: [id number] Admission Date: 01/13/2022 Date of : 1950 Age/Gender: 71/F HSSV/RM/BED: OOS/ Admitting Phys: Evelio Shetty MD PROGRESS NOTE DATE: SUBJECTIVE A 71-year-old female being seen in followup for pulmonary embolism following COVID-19 infection. The plan was to discontinue Eliquis after 3 months of anticoagulation provided. Hypercoagulable workup was negative. She had a positive lupus anticoagulant back in October 2021. It is now negative, but she does have a low protein S that we have followed up on; currently at 39, previously 41. She is tolerating her Eliquis well without any complications of bleeding or bruising. REVIEW OF SYSTEMS Review of all other systems negative. ALLERGIES AMLODIPINE, IODINE. MEDICATIONS Reviewed. PHYSICAL EXAMINATION GENERAL: Alert, oriented. No obvious distress. VITAL SIGNS: Stable. Afebrile. HEENT: Exam negative. NECK: Supple. No masses. CHEST: Clear to auscultation. No rales or rhonchi. CARDIOVASCULAR: S1, S2. Regular rate and rhythm. ABDOMEN: Soft, nontender. Bowel sounds positive. ASSIGNMENT OFFICER: No focal deficits. EXTREMITIES: No edema, cyanosis, or clubbing. SKIN: No rash. LABS Reviewed. ASSESSMENT 1. A 71-year-old very pleasant female who developed pulmonary embolism after coronavirus 2019 infection. She has been on anticoagulation with Eliquis. Our plan was to discontinue Eliquis after 3 months of anticoagulation, provided hypercoagulable workup was negative. We followed up with the hypercoagulable workup again in October, in which showed a positive lupus anticoagulation, a low protein S and a positive low-medium IgM anticardiolipin antibody. After discussion with the patient, we decided to continue with Eliquis and then repeat at this time, and which we did. She has a negative lupus anticoagulate, but she does have a low protein S at 39, and continues to have an elevated IgM anticardiolipin antibody. 2. At this time, it is our recommendation to continue with Eliquis long-term. The patient is in agreement because she is at high risk for recurrent thromboembolism. Assessment and plan were formulated in collaboration with Dr. Shetty. DICTATED BY: DARIUS Mcnamara Legally authenticated by LEANN FRASER 2022-01-23 08:56:20 Evelio Shetty MD TT: 01/22/2022 09:52:26 /LEILA /[id number] Electronically Authenticated by: Evelio Shetty M.D. on 01/23/2022 08:56 AM CDT Legally authenticated by LEANN FRASER 2022-01-23 08:56:20SAURABH MEDEROS 2022-01-19 21:05:59 PATIENT OPEN ORDERS Code System Description Frequency Occurrences Priority Start Date Ordering Physician Updated By PROTST MEDHOST PROTEIN S TOTAL CLOT INHIBITOR ONE TIME 0 Routine January 15, 2022 1:54:00 PM [facility] LEANN FRASER [id number] on January 15, 2022 4:18:00 PM [facility] SCHEDULED PROCEDURES Code System Description Status Scheduled Date Updated By Patient scheduled procedure information is not available. [facility]2022-04-20 12:18:23 [facility] [address] [address] / Patient Name: CELE ALVARENGA Patient#: [id number] Admission Date: 10/30/2021 Date of : 1950 Age/Gender: 71/F HSSV/RM/BED: OOS/ Admitting Phys: Evelio Shetty MD PROGRESS NOTE DATE: SUBJECTIVE A 71-year-old female being seen as a followup today for pulmonary embolism following COVID infection. Our plan was to discontinue Eliquis after 3 months of anticoagulation provided hypercoagulable workup was negative. I reviewed her hypercoagulable workup. She has a positive lupus anticoagulant, low protein S at 41%, and low-medium positive IgM anticardiolipin antibody at 21. She is tolerating Eliquis well without any complaints of bleeding, bruising. REVIEW OF SYSTEMS Review of other systems is negative. ALLERGIES AMLODIPINE, IODINE. SOCIAL HISTORY Denies smoking, alcohol abuse. PHYSICAL EXAMINATION GENERAL: Alert, oriented. No obvious distress. VITAL SIGNS: Stable. Afebrile. HEENT: Exam negative. NECK: Supple. No masses. CHEST: Clear to auscultation. No rales or rhonchi. CARDIOVASCULAR: S1, S2. Regular rate and rhythm. ABDOMEN: Soft, nontender. Bowel sounds positive. ASSIGNMENT OFFICER: No focal deficits. EXTREMITIES: No edema, cyanosis, or clubbing. SKIN: No rash. LABORATORY DATA Reviewed. ASSESSMENT/PLAN 1. A 71-year-old very pleasant female who developed a pulmonary embolism after coronavirus 2019 infection. She has been on anticoagulation with Eliquis. Our plan was to discontinue Eliquis after 3 months of anticoagulation provided hypercoagulable workup was negative. 2. I reviewed her hypercoagulable workup. She has a positive lupus anticoagulant, low protein S, and a positive low-medium IgM anticardiolipin antibody. 3. After discussion with the patient, we have decided to continue with Eliquis for now with plans to repeat lupus anticoagulant, anticardiolipin antibodies and protein S levels in 2 months, and make further recommendations accordingly. 4. If indeed she does have a positive lupus anticoagulant and a protein S deficiency, she would be at high risk for recurrent thromboembolism and Legally authenticated by LEANN FRASER 2021-11-14 09:09:54 may be a candidate for long-term anticoagulation. Evelio Shetty MD TT: 11/13/2021 12:18:23 KATHE/LEILA /[id number] cc: Neptali Hernandez MD Electronically Authenticated by: Evelio Shetty M.D. on 11/14/2021 09:09 AM CDT Legally authenticated by LEANN FRASER 2021-11-14 09:09:54JIMMY SHETTY 2021-11-04 21:06:41 PATIENT OPEN ORDERS Code System Description Frequency Occurrences Priority [place] [address]-0 LOINC Reference lab test [Identifier] ONE TIME 0 Routine October 30, 2021 2:29:00 PM [facility] LEANN FRASER 21124-7 LOINC F5 gene mutations tested for in Blood or Tissue ONE TIME 0 Routine October 30, 2021 2:29:00 PM [facility] LEANN FRASER 87602-9 LOINC F2 gene mutations tested for in Blood or Tissue ONE TIME 0 Routine October 30, 2021 2:29:00 PM [facility] LEANN FRASER PROTST MEDHOST PROTEIN S TOTAL CLOT INHIBITOR ONE TIME 0 Routine October 30, 2021 2:29:00 PM [facility] LEANN FRASER SCHEDULED PROCEDURES Code System Description Status Scheduled Date Updated By Patient scheduled procedure information is not available. [id number] 13:08:32 [facility] [address] [address] / Patient Name: CELE ALVARENGA Patient#: [id number] Admission Date: 10/16/2021 Date of : 1950 Age/Gender: 71/F HSSV/RM/BED: OOS/ Admitting Phys: Evelio Shetty MD PROGRESS NOTE DATE: 10/16/2021 Thank you, Dr. Hernandez, for giving me the privilege to see Cele Alvarenga in hematology consultation. HISTORY OF PRESENT ILLNESS A 71-year-old very pleasant female who had a COVID infection in July 2021, followed by pulmonary embolism. The patient since then has been taking Eliquis and tolerating well, without any complaints of bleeding or bruising. She states she was also trying to lose weight last year, lost 15 pounds in weight; however, she has gained most of it back. She denies chest pain, cough, shortness of breath, headache, bone pain, abdominal pain, fever, chills, or night sweats. Denies anorexia. Denies nausea, vomiting, diarrhea, hematochezia, melena, dysuria, hematuria, leg pain, swelling, numbness, tingling, dizziness, or palpitations. Denies any change in bowel habits or any trouble swallowing. REVIEW OF SYSTEMS Review of all other systems is negative. MEDICATIONS Epinephrine, famotidine, potassium, Plavix, Eliquis, vitamin D, chlorthalidone, Trulicity, NovoLog insulin, low-dose aspirin, losartan, Lantus insulin, carvedilol, atorvastatin, diltiazem, allopurinol. PAST HISTORY Diabetes mellitus, hypertension, hyperlipidemia, chronic kidney disease, total hysterectomy, right foot bone spur removal in 1989. FAMILY HISTORY Brother had cancer, type unknown. Father had throat cancer. SOCIAL HISTORY Denies smoking or alcohol abuse. ALLERGIES AMLODIPINE AND IODINE. PHYSICAL EXAMINATION GENERAL: Alert, oriented. No obvious distress. VITAL SIGNS: Stable. Afebrile. HEENT: Exam negative. NECK: Supple. No masses. CHEST: Clear to auscultation. No rales or rhonchi. CARDIOVASCULAR: S1, S2. Regular rate and rhythm. ABDOMEN: Soft, nontender. Bowel sounds positive. ASSIGNMENT OFFICER: No focal deficits. EXTREMITIES: No edema, cyanosis, or clubbing. Legally authenticated by LEANN FRASER 2021-10-17 09:01:45 SKIN: No rash. LABORATORY DATA Reviewed. ASSESSMENT/PLAN A 71-year-old very pleasant female who developed a pulmonary embolism after COVID 19 infection, July 2021. Since then, she has been on Eliquis. At this time, we will perform a hypercoagulable workup. If that is found to be negative, we will complete 3 months of anticoagulation and discontinue Eliquis. However, if her hypercoagulable workup is positive, then we will determine if she is a candidate for long-term anticoagulation. Further recommendations to follow. COVID 19 is a known risk factor for thromboembolism. Thank you, Dr. Hernandez, for giving me the privilege to see Cele Alvarenga in hematology consultation. I will keep you updated of her progress. Evelio Shetty MD TT: 10/16/2021 13:08:32 KATHE/LEILA /[id number] cc: Neptali Hernandez MD Electronically Authenticated by: Evelio Shetty M.D. on 10/17/2021 09:01 AM CDT Legally authenticated by LEANN FRASER 2021-10-17 09:01:45JIMMY SHETTY 2021-06-28 08:52:18 PATIENT OPEN ORDERS Code System Description Frequency Occurrences Priority Start Date Ordering Physician PFDLCO MEDHOST LUNG DIFFUSION ONE TIME 0 Routine June 27, 2021 8:58:00 PM [facility] LAMROMEO AVALOS PFSPIRO MEDHOST ZEHRA BEFORE BD ONE TIME 0 Routine June 27, 2021 8:58:00 PM [facility] LAMROMEO AVALOS PFTGV MEDHOST THORACIC GAS VOLUME ONE TIME 0 Routine June 27, 2021 8:58:00 PM [place] RE BAILEY [facility]2021-10-30 15:40:20Chest pain ;[facility]2021-10-30 15:40:20 PATIENT OPEN ORDERS Code System Description Frequency Occurrences Priority Start Date Ordering Physician OBSERVPT MEDHOST PLACE IN OBSERVATION STATUS ONE TIME 0 Routine May 24, 2021 6:10:00 PM UT JEFRY ALESSANDRA HT CATH MEDHOST HEART CATH ONE TIME 0 Routine May 24, 2021 4:25:00 PM [facility] RENO HORVATH EKGW MEDHOST EKG ONE TIME 0 Stat May 24, 2021 7:39:00 PM [facility] RENO HORVATH EKGW MEDHOST EKG ONE TIME 0 Routine May 25, 2021 10:00:00 AM [facility] RENO HORVATH CR EVAL MEDHOST CARDIAC REHAB PHASE I ONE TIME 0 Routine May 24, 2021 7:41:00 PM [facility] RENO HORVATH LOWCHOL MEDHOST LOW CHOLESTEROL/LO W FAT DIET ONE TIME 0 Timed May 24, 2021 7:42:00 PM [facility] RENO HORVATH CRSCREEN MEDHOST CARDIAC REHAB SCREEN ONE TIME 0 Routine May 24, 2021 10:52:00 PM [facility] RENO HORVATH [facility]2021-10-30 15:40:20PATIENT GOALS [facility]2021-10-29 22:25:[address] [address] Patient Name: CELE ALVARENGA Patient#: [id number] Admission Date: 05/24/2021 Date of : 1950 Age/Gender: 70/F HSSV/RM/BED: [facility]/A Admitting Phys: ALEXANDRU BOJORQUEZ DO OPERATIVE NOTE DATE OF SURGERY: 05/24/2021 SURGEON: ALEXANDRU BOJORQUEZ DO PROCEDURE PERFORMED 1. Right radial access 6-Bolivian Slender sheath. 2. Right common femoral arterial access, 7-Bolivian sheath. 3. Right common femoral venous IV access or right common femoral IV access. 4. Selective coronary angiography of left and right coronary arteries. 5. Attempted crossing of LAD VESSEL LINER with only crossing the proximal cap into a diagonal followed by balloon angioplasty. 6. Bedside echocardiogram for micro perf to evaluate for effusion and tamponade. No tamponade physiology appreciated, repeated at the end of the procedure. Again, no significant change. 7. Perclose vascular suture device deployment. 8. Vascade vascular closure plug. 9. TR band placement. 10.Supervised moderate sedation services for 2 hours. COMPLICATIONS No clinically significant complications. BRIEF HISTORY Ms. Alvarenga is a 70-year-old black female with hypertension, diabetes, hyperlipidemia, ischemic cardiomyopathy with abnormal stress examination, LAD VESSEL LINER identified anterior wall hypokinesis but overall preserved EF. The patient was recommended attempted PCI of this LAD VESSEL LINER for which she presents now. PROCEDURE DETAILS Following informed consent, patient was brought to the catheterization suite in a fasting state. The bilateral groins and right arm were prepped and draped in a sterile fashion. Utilizing double wall arterial puncture technique, the right radial artery was cannulated. A 6-Bolivian Slender sheath inserted through the right common femoral artery. Access obtained with ultrasound guidance to the right common femoral artery. A micropuncture needle was advanced and this was upsized to a 7-Bolivian sheath. The micropuncture needle was then advanced into the right common femoral vein and given the IV access she had appeared unreliable, a 6-Bolivian long sheath was inserted secondary to large subcutaneous track for reliable intravascular access for IV medications. Utilizing the radial sheath, a [place] diagnostic catheter was advanced to the right coronary artery utilizing the arterial sheath, which was a 7-Bolivian x 70 cm. An XB/EBU 3.5 guide catheter was advanced. Simultaneous left and right coronary angiograms were performed. The lowest settings available with the x-ray image technology here was set. Initial attempt at crossing the VESSEL LINER was made by utilizing a corsair and a BMW wire to approximate the catheter and a Fielder XT was used. Unfortunately, I was unable to navigate down the tract. It did navigate through a micro channel and it appears as though there was some dye staining in the epicardial space. The patient's hemodynamics remained stable Legally authenticated by RENO HORVATH 2021-06-01 03:04:35 with no significant rhythm changes. Patient did not complain of any chest pain. The tools were redirected and echocardiographic tech was requested to come and evaluate the patient. The patient was evaluated. There was a very small effusion present around the right atrial free wall. This is uncertain if this was previously present or if this is new. However, this did not demonstrate any tamponade physiology. The plan was to continue with procedure and re-evaluate this effusion and closely monitor hemodynamics. The procedure was continued with escalation of wires from a Fielder to a Zoology Professor 200 to an Astato. I was able to navigate down the vessel architecture and into a diagonal branch and then a 1.5 balloon was then utilized for modification of the plaque as an investment procedure because at this time secondary to patient's body habitus, difficulty of space and contrast exposure, the patient had now reached close to her maximal amount. The patient had 4.4 Gy of x-ray in total during this procedure and, therefore, no further attempts at intervention were deemed safe. At this point, the equipment was removed and hemostasis achieved at the radial access site with a TR band, at the femoral access site with a Perclose, and a Vascade for the artery and vein respectively. Echocardiogram was repeated and showed no significant change. The patient transferred to the postoperative unit for continued observation. She will be observed overnight and discharged tomorrow morning after a limited echocardiogram which has been ordered to re-evaluate. SUMMARY Partial crossing of an LAD VESSEL LINER with balloon angioplasty to the proximal cap extending into the first diagonal, however, unable to completely traverse the entire VESSEL LINER. This procedure is considered an investment procedure. Return for intervention after time for recovery may be considered. The other option would be a single-vessel bypass with a JAMES to LAD. The patient's body habitus makes this potentially less desirable secondary to concerns for wound healing and post general anesthesia management. ALEXANDRU BOJORQUEZ DO TT: 05/24/2021 22:25:23 AM/MODL /[id number] Electronically Authenticated by: Alexandru Bojorquez D.O. on 06/01/2021 03:04 PM CDT Legally authenticated by RENO HORVATH 2021-06-01 03:04:35ANJEL MESA 2021-05-24 21:08:27Chest pain ;[facility]
[2024-11-24 09:48] LABS: Absolute Eosinophils 0.1 K/uL (0-0.5); Absolute Lymphocytes (CBC) 2.2 K/uL (0.7-4.9); Absolute Monocytes 0.4 K/uL (0.1-1.3); Absolute Neutrophil 3.6 K/uL (1.8-8.0); Basophils % 0.8 % (0-1.3); Eosinophils % 2.2 % (0-4.4); Hematocrit 37.2 % (36.0-45.0); Hemoglobin 12.3 g/dL (12.0-15.0); Lymphocytes % 34.5 % (15.3-44.8); MCV 87.8 fL (80-100); MPV 7.5 fL (7.6-11.3); Monocytes % 6.5 % (3.3-12.3); Nucleated Red Blood Cells % 0.1 % (0-0); Platelets 209 thou/uL (152-406); RBC Red Blood Cell Count 4.24 M/uL (3.86-4.86)
--- NOTE | 2024-11-24 10:00 | RAD REPORT ---
Procedure: Chest Single View HISTORY: End-stage renal disease. Shortness of breath. COMPARISON: 2009 FINDINGS: The lungs appear clear of acute infiltrate. No significant pleural effusion noted. The heart is mildly enlarged. Central venous catheter in place. IMPRESSION: No acute abnormality is displayed.
[2024-11-24 10:04] LABS: Anion Gap 13.6 mEq/L (5.0-15.0); Potassium 3.6 mEq/L (3.5-5.1)
--- NOTE | 2024-11-24 10:25 | EDPHYS ---
Physician Documentation [facility] Name: Cele Nagel Age: 74 yrs Sex: Female : 1950 Arrival Date: 11/24/2024 Time: 08:32 Bed 8 Private MD: ED Physician Rick Deng HPI: 11/24 09:55 This 74 yrs old Black Female presents to ER via Ambulatory with complaints of Dialysis. rn 09:55 Patient reports his from out of town, visiting family, usually gets dialysis Thursday rn Thursday, patient reports unable to get into dialysis today because she is from out of town so came here for dialysis. Patient is asymptomatic. No chest pain or shortness of breath. No swelling. No acute complaints.. Historical: - Allergies: 08:54 Lisinopril; aa5 08:54 Iodine; aa5 - PMHx: 08:54 Diabetes - IDDM; High Cholesterol; Hypertension; TIA (Unknown); ESRD (Dialysis) aa5 (Unknown); - PSHx: 08:54 Right upper chest dialysis catheter (Unknown); aa5 - Immunization history:: Adult Immunizations unknown. - Infectious Disease History:: Denies. - Social history:: Smoking status: Patient denies any tobacco usage or history of. - Family history:: not pertinent. - Hospitalizations: : No recent hospitalization is reported. ROS: 09:55 Constitutional: Negative for fever, chills, and weight loss, Cardiovascular: Negative rn for chest pain, palpitations, and edema, Respiratory: Negative for shortness of breath, cough, wheezing, and pleuritic chest pain, Abdomen/GI: Negative for abdominal pain, nausea, vomiting, diarrhea, and constipation, Back: Negative for injury and pain, MS/Extremity: Negative for injury and deformity, Skin: Negative for injury, rash, and discoloration, Neuro: Negative for headache, weakness, numbness, tingling, and seizure, Exam: 09:55 Constitutional: This is a well developed, well nourished patient who is awake, alert, rn and in no acute distress. Cardiovascular: Regular rate and rhythm. No pulse deficits. Respiratory: No increased work of breathing, no retractions or nasal flaring. Abdomen/GI: Soft, non-tender MS/ Extremity: Pulses equal, no cyanosis. Neurovascular intact. Full, normal range of motion. Equal circumference. Neuro: Awake and alert, GCS 15 10:38 ECG was reviewed by the Attending Physician. rn Vital Signs: 08:54 BP 120 / 70; Pulse 79; Resp 16 S; Temp 98(O); Pulse Ox 99% on R/A; aa5 10:38 BP 120 / 64; Pulse 78; Resp 15; Pulse Ox 98% ; jl7 MDM: 08:39 Medical Screening Exam initiated rn 10:22 Differential Diagnosis End-stage renal disease, hyperkalemia, acidosis. Data reviewed: rn vital signs, nurses notes, lab test result(s), EKG, radiologic studies, plain films, and as a result, I will discharge patient. Counseling: I had a detailed discussion with the patient and/or guardian regarding the historical points, exam findings, and any diagnostic results supporting the discharge/admit diagnosis, lab results, radiology results, the need for outpatient follow up, to return to the emergency department if symptoms worsen or persist or if there are any questions or concerns that arise at home. Special discussion: I discussed with the patient/guardian in detail that at this point there is no indication for admission to the hospital. It is understood, however, that if the symptoms persist or worsen the patient needs to return immediately for re-evaluation. ED course: No indication for emergent admission or emergent dialysis at this time. Patient is asymptomatic and no hyperkalemia or acidosis noted. Chest x-ray images negative for pulmonary edema per my interpretation.. 11/24 08:57 Order name: CBC with Diff; Complete Time: 10:05 11/24 08:57 Order name: Basic Metabolic Panel; Complete Time: 10:05 11/24 08:57 Order name: XRAY Chest (1 view); Complete Time: 10:05 11/24 08:57 Order name: EKG; Complete Time: 08:58 rn 11/24 08:57 Order name: EKG - Nurse/Tech; Complete Time: 09:39 rn 11/24 08:57 Order name: IV Start; Complete Time: 09:38 rn EC:38 Rate is 79 beats/min. Rhythm is regular. QRS [place] is Normal. MD interval is normal. QRS rn interval is normal. QT interval is normal. No Q waves. T waves are Normal. No ST changes noted. Clinical impression: NSR w/ Non-specific ST/T Changes. Interpreted by me. Reviewed by me. Administered Medications: No medications were administered Disposition Summary: 11/24/24 10:24 Discharge Ordered Notes: Location: Home rn Problem: new rn Symptoms: have improved rn Condition: Stable rn Diagnosis - End stage renal disease rn Followup: rn - With: Private Physician - When: As needed - Reason: Recheck today's complaints, Re-evaluation by your physician Discharge Instructions: - Discharge Summary Sheet rn - pattern wheel maker - End-Stage Kidney Disease rn Forms: - Medication Reconciliation Form rn - Antibiotic internet developer - Prescription Opioid Use rn - Patient Portal Instructions rn - Leadership Thank You Letter rn Signatures: Dispatcher [employer] EDRick Patrick MD MD rn Isela Lawrence RN RN aa5 Corrections: (The following items were deleted from the chart) 08:58 08:58 CBC+H.LAB.BRZ ordered. EDMS EDMS 08:58 08:58 BASIC METABOLIC PANEL+C.LAB.BRZ ordered. EDMS EDMS
--- NOTE | 2024-11-24 10:25 | ER ---
Nurse's Notes [facility] Name: Cele Nagel Age: 74 yrs Sex: Female : 1950 Arrival Date: 11/24/2024 Time: 08:32 Bed 8 Private MD: Diagnosis: End stage renal disease Presentation: 11/24 08:54 Chief complaint: Patient states: "I am here with my niece from [place] and I am due aa5 for dialysis today". Pt reports last dialysis was Thursday11/22/24. Pt denies any symptoms. 08:54 Coronavirus screen: At this time, the client does not indicate any symptoms associated aa5 with coronavirus-19. Ebola Screen: Patient denies travel to an Ebola-affected area in the 21 days before illness onset. Initial Sepsis Screen: Does the patient meet any 2 criteria? No. Patient's initial sepsis screen is negative. Does the patient have a suspected source of infection? No. Patient's initial sepsis screen is negative. Risk Assessment: Do you want to hurt yourself or someone else? Patient reports no desire to harm self or others. Onset of symptoms was November 24, 2024. 08:54 Acuity: VIRY 3 aa5 08:54 Method Of Arrival: Ambulatory aa5 Historical: - Allergies: 08:54 Lisinopril; aa5 08:54 Iodine; aa5 - PMHx: 08:54 Diabetes - IDDM; High Cholesterol; Hypertension; TIA (Unknown); ESRD (Dialysis) aa5 (Unknown); - PSHx: 08:54 Right upper chest dialysis catheter (Unknown); aa5 - Immunization history:: Adult Immunizations unknown. - Infectious Disease History:: Denies. - Social history:: Smoking status: Patient denies any tobacco usage or history of. - Family history:: not pertinent. - Hospitalizations: : No recent hospitalization is reported. Screenin:[facility] ED Fall Risk Assessment (Adult) History of falling in the last 3 months, aa5 including since admission No falls in past 3 months (0 pts) Confusion or Disorientation No (0 pts) Intoxicated or Sedated No (0 pts) Impaired Gait Yes (1 pt) Mobility Assist Device Used Yes (1 pt) Altered Elimination No (0 pt) Score/Fall Risk Level 0 - 2 = Low Risk Oriented to surroundings, Maintained a safe environment, Educated pt \\T\\ family on fall prevention, incl call for assistance when getting out of bed, Assessed \\T\\ reinforced patient's understanding of fall precautions. Abuse screen: Denies threats or abuse. Nutritional screening: No deficits noted. Tuberculosis screening: No symptoms or risk factors identified. Assessment: 08:54 General: Appears comfortable, Behavior is calm, cooperative. Pain: Denies pain. Neuro: aa5 Level of Consciousness is awake, alert, obeys commands, Oriented to person, place, time, situation. Cardiovascular: Denies chest pain, diaphoresis, fatigue, lightheadedness, nausea, palpitations, shortness of breath, vomiting, Heart tones S1 S2 present Dialysis catheter noted to right upper chest. . Rhythm is regular. Respiratory: Airway is patent Respiratory effort is even, unlabored, Respiratory pattern is regular, symmetrical, Denies cough, shortness of breath labored breathing. GI: No signs and/or symptoms were reported involving the gastrointestinal system. Abdomen is obese. : No signs and/or symptoms were reported regarding the genitourinary system. EENT: No signs and/or symptoms were reported regarding the EENT system. Derm: Skin is dry, Skin is normal, Skin temperature is warm. Musculoskeletal: Pt is ambulatory with walker. 09:35 Neuro: Level of Consciousness is awake, alert, obeys commands, Oriented to person, aa5 place, time, situation. Respiratory: Airway is patent Respiratory effort is even, unlabored, Respiratory pattern is regular, symmetrical. Derm: Skin is dry, Skin is normal, Skin temperature is warm. Vital Signs: 08:54 BP 120 / 70; Pulse 79; Resp 16 S; Temp 98(O); Pulse Ox 99% on R/A; aa5 10:38 BP 120 / 64; Pulse 78; Resp 15; Pulse Ox 98% ; jl7 ED Course: 08:37 Patient arrived in ED. cj3 08:39 Rick Deng MD is Attending Physician. rn 08:49 Isela Lawrence, BALDO is Primary Nurse. aa5 08:54 Arm band placed on Patient placed in an exam room, on a stretcher. aa5 08:54 Patient has correct armband on for positive identification. Placed in gown. Bed in low aa5 position. Call light in reach. Side rails up X2. Pulse ox on. NIBP on. 08:58 Triage completed. aa5 09:25 Missed attempt(s): 24 gauge in left wrist. Bleeding controlled, band aid applied, aa5 catheter tip intact. 09:28 Initial lab(s) drawn, by me, sent to lab. aa5 09:28 Missed attempt(s): 24 gauge in left hand. Bleeding controlled, band aid applied, aa5 catheter tip intact. 09:35 XRAY Chest (1 view) In Process Unspecified. EDMS 09:35 EKG done, by ED staff, reviewed by Rick Deng MD. aa5 09:43 No provider procedures requiring assistance completed. aa5 10:38 Patient did not have IV access during this emergency room visit. jl7 Administered Medications: No medications were administered Medication: 09:43 VIS not applicable for this client. aa5 Outcome: 10:24 Discharge ordered by . rn 10:38 Discharged to home ambulatory, jl7 10:38 Condition: stable 10:38 Discharge instructions given to patient, Instructed on discharge instructions, follow up and referral plans. Demonstrated understanding of instructions, follow-up care, 10:39 Patient left the ED. jl7 Signatures: Dispatcher [employer] EDMS Rick Deng MD MD rn Calderon, Audri, RN RN aa5 Jose Roberto Noble RN RN jl7 Tresa Mosqueda cj3
[2024-11-24 10:44] VITALS: TEMP 98
[2024-11-24 10:45] VITALS: BP 120/64; O2SAT 98
--- NOTE | 2024-11-24 11:52 | EKG ---
Test Date: 2024-11-24 Test Time: 09:35:56 Cable Tool Driller: MICHAEL MEASUREMENT RESULTS: Intervals: Rate: 79 TX: 186 QRSD: 86 QT: 424 QTc: 486 [place]: P: 29 TX: 186 QRS: -5 T: 98 INTERPRETIVE STATEMENTS: Normal sinus rhythm Inferior infarct, age undetermined Possible Anterior infarct, age undetermined Abnormal ECG Compared to ECG 10/25/2008 06:07:09 Myocardial infarct finding now present T-wave abnormality no longer present Possible ischemia no longer present Prolonged QT interval no longer present Electronically Signed On 11-24-24 11:51:45 CDT by Manish Antoine
== END 2024-11-24 10:39 | disposition home or self-care (01) ==
LOC: ER 08:32
DX: E11.22 Type 2 diabetes mellitus with diabetic chronic kidney disease (principal); I12.0 Hypertensive chronic kidney disease with stage 5 chronic kidney disease or end stage renal disease; N18.6 End stage renal disease; Z99.2 Dependence on renal dialysis
CPT/HCPCS: 36415; 71045; 80048; 85025; 93005; 99284